=== PATIENT | female | born 1965 | race Caucasian/White ===

== ENCOUNTER 2017-03-26 01:35 | Observation (INO) | payer MEDICARE, MEDICAID ==
[2017-03-26] MEDS ORDERED: Sodium Chloride 0.9% 10 ML Syringe FLUSH PRN (01:43)
[2017-03-26] MEDS ORDERED: Dexamethasone 10 MG/ML SDV IVPUSH ONE (01:43)
[2017-03-26] MEDS ORDERED: Sodium Chloride 0.9% 1,000 ML IV ONE (01:44)
--- NOTE | 2017-03-26 01:50 | EDM.PDOC ---
ED HPI GENERAL MEDICAL PROBLEM - General Chief Complaint: Back Pain or Injury Stated Complaint: Back pain Time Seen by Provider: 03/26/17 01:42 Source of Information: Reports: Patient, EMS Notes Reviewed, RN, RN Notes Reviewed History Limitations: Reports: No Limitations - History of Present Illness INITIAL COMMENTS - FREE TEXT/NARRATIVE: Patient is brought to the ED at [facility] via EMS with complaints of acute on chronic low back pain. Patient states she was trying to transfer herself from the bed to her wheelchair to go to the bathroom, when the pain got worse. The pain is always present to some degree, but is worse now. Patient states her low back pain is chronic. She states she is schedule for a pain injection this Saturday at [facility]. Patient states the pain "got so bad I felt like passing out." Patient received 1mg of Dilaudid en route via EMS. 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 Right lower back Pain Score (Numeric/FACES): 8 - Related Data Allergies Allergy/AdvReac Type Severity Reaction Status Date / Time Penicillins Allergy Vomiting Verified 03/26/17 02:04 Home Meds: Home Meds Levothyroxine Sodium [Synthroid] 200 mcg PO DAILY 05/26/14 [History] Pantoprazole [ProTONIX] 1 tab PO BID 05/26/14 [History] Serum Eye Drops 1 drop EYEBOTH QID 05/26/14 [History] Tolterodine Tartrate [Detrol LA] 4 mg PO DAILY 05/26/14 [History] Topiramate [Topamax] 100 mg PO BID 05/26/14 [History] Dorzolamide HCl/Timolol Maleat [Cosopt Eye Drops] 1 drop EYEBOTH BID 06/30/15 [ History] Gabapentin [Neurontin] 300 mg PO TID 06/30/15 [History] Latanoprost [Xalatan 0.005% Ophth Soln] 1 drop EYEBOTH BEDTIME 06/15/16 [History ] Nortriptyline 25 mg PO BEDTIME 06/15/16 [History] Calcium Carbonate/Vitamin D3 [Calcium 500-Vit D3 200 Caplet] 1 each PO DAILY [History] glipiZIDE [Glucotrol] 10 mg PO DAILY 06/22/16 [History] Acetaminophen [Tylenol] 650 mg PO Q4H PRN #0 tablet 06/28/16 [Rx] Non-Formulary Medication [NF Drug] 1 each EYEBOTH 0800,1100,1400,1800 each 08/13 [Rx] predniSONE 20 mg PO DAILY #30 tablet 06/28/16 [Rx] Past Medical History HEENT History: Reports: Cataract, Glaucoma Gastrointestinal History: Reports: GERD Musculoskeletal History: Reports: Back Pain, Chronic Neurological History: Reports: Other (See Below) Other Neuro History: Mom reports [facility] told them pt has "headache less" migraines. Has had brain biopsy at [facility] Endocrine/Metabolic History: Reports: Hypothyroidism, Obesity/BMI 30+ Dermatologic History: Reports: None - Past Surgical History HEENT Surgical History: Reports: Cataract Surgery Social & Family History - Family History Family Medical History: Noncontributory - Tobacco Use Smoking Status *Q: Never Smoker Second Hand Smoke Exposure: Yes - Caffeine Use Caffeine Use: Reports: None - Alcohol Use Days Per Week of Alcohol Use: 0 Number of Drinks Per Day: 0 Total Drinks Per Week: 0 - Recreational Drug Use Recreational Drug Use: No Drug Use in Last 12 Months: No ED ROS GENERAL - Review of Systems Review Of Systems: See Below Constitutional: Denies: Fever, Chills, Weakness Respiratory: Denies: Shortness of Breath, Cough Cardiovascular: Denies: Chest Pain, Palpitations Musculoskeletal: Reports: Back Pain (acute on chronic) Skin: Reports: No Symptoms Neurological: Reports: No Symptoms. Denies: Headache, Numbness, Paresthesia, Tingling ED EXAM,LOWER BACK PAIN/INJURY - Physical Exam Exam: See Below Exam Limited By: No Limitations General Appearance: Alert, Mild Distress, Obese Respiratory/Chest: No Respiratory Distress, Lungs Clear, Normal Breath Sounds Cardiovascular: Regular Rate, Rhythm Back Exam: Normal Inspection, Decreased Range of Motion, Muscle Spasm, Paraspinal Tenderness Neurological: Alert, Oriented x 3 Skin Exam: Warm, Dry, Intact, Normal Color, No Rash Course - Vital Signs Last Recorded V/S: Last Vital Signs Temp 36.6 C 03/26/17 01:45 Pulse 97 03/26/17 01:45 Resp 16 03/26/17 01:45 BP 99/58 L 03/26/17 01:45 Pulse Ox 94 L 03/26/17 01:45 - Orders/Labs/Meds Orders: Active Orders 24 hr Category Date Time Status Admission Status [Patient Status] [ADT] Routine ADT 03/26/17 02:26 Ordered Sodium Chloride 0.9% [Normal Saline] 1,000 ml Med 03/26/17 01:44 Active IV ONETIME Sodium Chloride 0.9% [Saline Flush] Med 03/26/17 01:43 Active 10 ml FLUSH ASDIRECTED PRN Peripheral IV Insertion Adult [OM.PC] Routine Oth 03/26/17 01:43 Ordered Medication Orders Sodium Chloride (Normal Saline) 1,000 mls @ 999 mls/hr IV ONETIME ONE Stop: 03/26/17 02:44 Sodium Chloride (Saline Flush) 10 ml FLUSH ASDIRECTED PRN PRN Reason: Keep Vein Open Meds: Medications Generic Name Dose Route Start Last Admin Trade Name Freq PRN Reason Stop Dose Admin Sodium Chloride 1,000 mls @ 999 mls/hr 03/26/17 01:44 Normal Saline IV 03/26/17 02:44 ONETIME ONE Sodium Chloride 10 ml 03/26/17 01:43 Saline Flush FLUSH ASDIRECTED PRN Keep Vein Open Discontinued Medications Generic Name Dose Route Start Last Admin Trade Name Freq PRN Reason Stop Dose Admin Dexamethasone 12 mg 03/26/17 01:43 Dexamethasone IVPUSH 03/26/17 01:44 ONETIME ONE Dexamethasone 12 mg 03/26/17 02:15 Dexamethasone IVPUSH 03/26/17 02:16 ONETIME ONE Orphenadrine Citrate 60 mg 03/26/17 01:43 Norflex IM 03/26/17 01:44 ONETIME ONE Departure - Departure Time of Disposition: 02:24 Disposition: Refer to Observation Condition: Fair Clinical Impression: Acute exacerbation of chronic low back pain, Lethargy - Discharge Information Referrals: PCP,Unobtain [Primary Care Provider] - - Problem List Review Problem List Initiated/Reviewed/Updated: Yes - My Orders Last 24 Hours: My Active Orders 03/26/17 01:43 Sodium Chloride 0.9% [Saline Flush] 10 ml FLUSH ASDIRECTED PRN Peripheral IV Insertion Adult [OM.PC] Routine 03/26/17 01:44 Sodium Chloride 0.9% [Normal Saline] 1,000 ml IV ONETIME 03/26/17 02:26 Admission Status [Patient Status] [ADT] Routine - Assessment/Plan Admission H&P: Please use this note as an admission H&P Last 24 Hours: My Active Orders 03/26/17 01:43 Sodium Chloride 0.9% [Saline Flush] 10 ml FLUSH ASDIRECTED PRN Peripheral IV Insertion Adult [OM.PC] Routine 03/26/17 01:44 Sodium Chloride 0.9% [Normal Saline] 1,000 ml IV ONETIME 03/26/17 02:26 Admission Status [Patient Status] [ADT] Routine
[2017-03-26] MEDS ORDERED: Dexamethasone 4 MG/ML SDV IVPUSH ONE (02:15)
[2017-03-26] MEDS ORDERED: Ondansetron 4 MG Tab.DIS PO PRN (03:17)
[2017-03-26] MEDS ORDERED: Acetaminophen 325 MG Tab PO PRN (03:23)
[2017-03-26] MEDS: Omeprazole 20 MG Cap.CR PO SCH ×2 (06:02→16:48)
[2017-03-26] MEDS ORDERED: PANTOPRAZOLE PO SCH (08:00)
[2017-03-26] MEDS: Tolterodine 2 MG Cap.ER PO SCH (08:04)
[2017-03-26] MEDS: Topiramate 50 MG Tab PO SCH ×2 (08:04→19:51)
[2017-03-26] MEDS: Gabapentin 300 MG Cap PO SCH ×3 (08:04→21:46)
[2017-03-26] MEDS: DORZOLAMIDE EYEBOTH SCH ×2 (08:05→21:47)
[2017-03-26] MEDS: TIMOLOL EYEBOTH SCH ×2 (08:05→21:47)
[2017-03-26] MEDS: Acetaminophen/HYDROcodone 325-5 MG Tab PO PRN ×2 (16:48→21:13)
[2017-03-26] MEDS: SERUM EYE EYEBOTH SCH (18:12)
--- NOTE | 2017-03-26 18:16 | PCM.PN ---
- General Info Date of Service: 03/26/17 Subjective Update: Patient is brought to the ED at [facility] last night via EMS with complaints of acute on chronic low back pain. Patient states she was trying to transfer herself from the bed to her wheelchair to go to the bathroom, when the pain got worse. The pain is always present to some degree, but is worse now. Patient states her low back pain is chronic. She states she is schedule for a pain injection tomorrow at [facility]. Patient states the pain "got so bad I felt like passing out." Patient received 1mg of Dilaudid en route via EMS. Patient offers no new complaints today. She states her low right side back pain is still 5/10. No problems with urinating or BM's. No focal neurological deficits. No SOB or cough. Functional Status: Reports: Tolerating Diet, Urinating Pain Score: 5 - Review of Systems General: Reports: No Symptoms. Denies: Fever, Weakness Pulmonary: Reports: No Symptoms. Denies: Shortness of Breath, Cough Cardiovascular: Reports: No Symptoms. Denies: Chest Pain, Palpitations Musculoskeletal: Reports: Back Pain, Other (muscle spasm and stiffness with pain radiating down posterior right leg) Skin: Reports: No Symptoms Neurological: Reports: No Symptoms. Denies: Headache, Numbness, Paresthesia, Tingling - Patient Data Vitals - Most Recent: Last Vital Signs Temp 36.8 C 03/26/17 13:50 Pulse 95 03/26/17 13:50 Resp 20 03/26/17 13:50 BP 120/57 L 03/26/17 13:50 Pulse Ox 100 03/26/17 13:50 Weight - Most Recent: 103.873 kg I&O - Last 24 Hours: Intake & Output 03/26/17 03/26/17 03/26/17 06:59 14:59 22:59 Intake Total 800 240 Output Total 300 Balance 500 240 Lab Results Last 24 Hours: Laboratory Results - last 24 hr 03/26/17 03/26/17 03/26/17 Range/Units 06:00 11:06 16:46 POC Glucose 205 H 242 H 146 H (74-106) mg/dL Med Orders - Current: Current Medications Acetaminophen (Tylenol) 650 mg PO Q6H PRN PRN Reason: Pain Hydrocodone Bitart/Acetaminophen ([place] 325-5 Mg) 1 tab PO Q4H PRN PRN Reason: Pain (moderate 4-6) Last Admin: 03/26/17 16:48 Dose: 1 tab Dorzolamide/Timolol (Cosopt 2%-0.5% Ophth Soln) 0 ml EYEBOTH BID [facility] Last Admin: 03/26/17 08:05 Dose: Not Given Gabapentin (Neurontin) 300 mg PO TID [facility] Last Admin: 03/26/17 12:32 Dose: 300 mg Glipizide (Glucotrol) 10 mg PO DAILY [facility] Last Admin: 03/26/17 08:04 Dose: 10 mg Insulin Detemir (Levemir) 13 unit SUBCUT BEDTIME [facility] Latanoprost (Xalatan 0.005% Ophth Soln) 0 ml EYEBOTH BEDTIME [facility] Levothyroxine Sodium (Levothyroxine) 175 mcg PO DAILY@0700 [facility] Last Admin: 03/26/17 06:01 Dose: 175 mcg Nortriptyline HCl (Nortriptyline) 25 mg PO BEDTIME [facility] Omeprazole (Omeprazole) 20 mg PO BIDAC [facility] Last Admin: 03/26/17 16:48 Dose: 20 mg Ondansetron HCl (Zofran Odt) 4 mg PO Q6H PRN PRN Reason: nausea, able to take PO Senna (Senna) 8.6 mg PO BEDTIME [facility] Sodium Chloride (Saline Flush) 10 ml FLUSH ASDIRECTED PRN PRN Reason: Keep Vein Open Tolterodine Tartrate (Detrol La 24 Hr) 4 mg PO DAILY [facility] Last Admin: 03/26/17 08:04 Dose: 4 mg Topiramate (Topamax) 100 mg PO BID [facility] Last Admin: 03/26/17 08:04 Dose: 100 mg Discontinued Medications Dexamethasone (Dexamethasone) 12 mg IVPUSH ONETIME ONE Stop: 03/26/17 01:44 Last Admin: 03/26/17 04:27 Dose: Not Given Dexamethasone (Dexamethasone) 12 mg IVPUSH ONETIME ONE Stop: 03/26/17 02:16 Last Admin: 03/26/17 02:31 Dose: 12 mg Sodium Chloride (Normal Saline) 1,000 mls @ 999 mls/hr IV ONETIME ONE Stop: 03/26/17 02:44 Last Admin: 03/26/17 02:20 Dose: 999 mls/hr Orphenadrine Citrate (Norflex) 60 mg IM ONETIME ONE Stop: 03/26/17 01:44 Last Admin: 03/26/17 02:24 Dose: 60 mg Serum Eye Drops 1 (Drop *Ptom*) 0 each EYEBOTH QID [facility]LLIE - Exam General: Alert, Oriented, Cooperative, No Acute Distress Lungs: Clear to Auscultation, Normal Respiratory Effort Cardiovascular: Regular Rate, Regular Rhythm Back Exam: Normal Inspection, Muscle Spasm, Paraspinal Tenderness Extremities: Normal Inspection Peripheral Pulses: 2+: Posterior Tibial (L), Posterior Tibial (R), Dorsalis Pedis (L), Dorsalis Pedis (R) Skin: Warm, Dry, Intact Neurological: No New Focal Deficit - Problem List & Annotations (1) Acute exacerbation of chronic low back pain SNOMED Code(s): 471622750 Code(s): M54.5 - LOW BACK PAIN; G89.29 - OTHER CHRONIC PAIN Status: Acute Priority: Medium Current Visit: Yes Onset Date: ~03/25/17 (2) Lethargy SNOMED Code(s): 651386541 Code(s): R53.83 - OTHER FATIGUE Status: Resolved Priority: Medium Current Visit: Yes Onset Date: ~03/25/17 - Problem List Review Problem List Initiated/Reviewed/Updated: Yes - My Orders Last 24 Hours: My Active Orders 03/26/17 03:17 Patient Status [ADT] Routine Blood Glucose Check, Bedside [RC] ,,,15 December Shower [RC] .PRN Oxygen Therapy [RC] .PRN Up With Assistance [RC] VTE/DVT Education [RC] .PRN Vital Signs [RC] 06,10,14,18,22,02 Consult to Case Management [CONS] Routine OT Evaluation and Treatment [CONS] Routine PT Evaluation and Treatment [CONS] Routine Acetaminophen/HYDROcodone [[place] 325-5 MG] 1 tab PO Q4H PRN Ondansetron [Zofran ODT] 4 mg PO Q6H PRN Resuscitation Status Routine 03/26/17 03:19 Intake and Output [RC] 06,18 03/26/17 03:23 Acetaminophen [Tylenol] 650 mg PO Q6H PRN 03/26/17 07:00 Levothyroxine 175 mcg PO DAILY@0700 Omeprazole 20 mg PO BIDAC 03/26/17 08:00 Dorzolamide/Timolol [Cosopt 2%-0.5% Ophth Soln] 0 ml EYEBOTH BID Gabapentin [Neurontin] 300 mg PO TID Tolterodine [Detrol LA 24 Hr] 4 mg PO DAILY Topiramate [Topamax] 100 mg PO BID glipiZIDE [Glucotrol] 10 mg PO DAILY 03/26/17 20:00 Insulin Detemir [Levemir] 13 unit SUBCUT BEDTIME Latanoprost [Xalatan 0.005% Ophth Soln] 0 ml EYEBOTH BEDTIME Nortriptyline 25 mg PO BEDTIME Sennosides [Senna] 8.6 mg PO BEDTIME 03/26/17 Breakfast [place] [employer] Diet [DIET] - Assessment Assessment:: 1. Acute on chronic low back pain with sciatica, right 2. Lethargy, resolved - Plan Plan:: 51-year-old female patient with multiple medical problems was admitted to the observation unit at [facility] for acute on chronic right low back pain with right side sciatica and lethargy. Overall the patient states she feels she is stable. Her pain is stable and has somewhat gotten better. The pain has not gotten any worse. The patient will be seen by physical therapy today. The patient does have occupational therapy ordered, however they are not available to see her today. The patient will remain on observation for 1 more night to make sure that there is not any bowel or bladder issues. The patient will be discharged tomorrow morning at which time she will be sent to the surgery department for a spinal injection. It would be my recommendation at this time the patient would need permanent shelter placement due to increasing use of a wheelchair, poor ambulation, multiple medical problems, and need for assistance with her ADLs on a daily basis. I will leave this conversation to the patient and her primary care provider. I would recommend that the patient follow up with her PCP next week. The patient will have early ambulation for DVT prophylaxis. The patient is a Code 1.
[2017-03-26] MEDS ORDERED: Sennosides 8.6 MG Tab PO SCH (20:00)
[2017-03-26] MEDS ORDERED: INSULIN GLARGINE SUBCUT SCH (20:00)
[2017-03-26] MEDS ORDERED: Latanoprost 0.005% Ophth Soln 2.5 ML Bottle ** OWN MED EYEBOTH SCH (20:00)
[2017-03-26] MEDS ORDERED: [UNRECOGNIZED DRUG - OTHER] SUBCUT SCH (20:00)
[2017-03-26] MEDS ORDERED: Nortriptyline 25 MG Cap PO SCH (20:00)
[2017-03-26] MEDS ORDERED: Insulin Detemir 100 Units/ML 3 ML Pen SUBCUT SCH (20:00)
[2017-03-27] MEDS: Omeprazole 20 MG Cap.CR PO SCH (06:13)
[2017-03-27 06:43] VITALS: BP 130/60
--- NOTE | 2017-03-27 06:53 | PCM.DCSUM1 ---
Discharge Summary - Hospital Course HPI Initial Comments: Patient was brought to the ED at [facility] via EMS with complaints of acute on chronic low back pain. Patient states she was trying to transfer herself from the bed to her wheelchair to go to the bathroom, when the pain got worse. The pain is always present to some degree, but had gotten worse. Patient states her low back pain is chronic. She states she is schedule for a pain injection today, Saturday at [facility]. Patient states the pain "got so bad I felt like passing out." Patient received 1mg of Dilaudid en route via EMS. Brief History: Patient states her lower back pain is "better" today than when she was admitted. No problems with bowel or bladder. Patient has not had any chest pain or shortness of breath. Patient states she has been resting comfortably. - Discharge Data Discharge Date: 03/27/17 Discharge Disposition: Home, Self-Care 01 Condition: Good - Discharge Diagnosis/Problem(s) (1) Acute exacerbation of chronic low back pain SNOMED Code(s): 105528827 ICD Code: M54.5 - LOW BACK PAIN; G89.29 - OTHER CHRONIC PAIN Status: Acute Priority: Medium Current Visit: Yes Onset Date: ~03/25/17 (2) Lethargy SNOMED Code(s): 034150702 ICD Code: R53.83 - OTHER FATIGUE Status: Resolved Priority: Medium Current Visit: Yes Onset Date: ~03/25/17 - Patient Summary/Data Operative Procedure(s) Performed: None Consults: Consultations 03/26/17 03:17 Consult to Case Management [CONS] Routine OT Evaluation and Treatment [CONS] Routine PT Evaluation and Treatment [CONS] Routine Labs Pending at D/C: None Hospital Course: Overall, patient did well during her stay. Patient remained hemodynamically stable and afebrile. Patient was able to help ambulate to the bathroom when needed with minimal pain. No falls. No issues with bowel or bladder. - Patient Instructions Diet: Diabetic Diet Activity: Rest and Relax Today Driving: Do Not Drive Showering/Bathing: May Shower Notify Provider of: Fever, Increased Pain, Nausea and/or Vomiting - Discharge Plan Home Medications: Home Meds Levothyroxine Sodium [Synthroid] 175 mcg PO DAILY 05/26/14 [History] Serum Eye Drops 1 drop EYEBOTH QID 05/26/14 [History] Tolterodine Tartrate [Detrol LA] 4 mg PO DAILY 05/26/14 [History] Topiramate [Topamax] 100 mg PO BID 05/26/14 [History] Dorzolamide HCl/Timolol Maleat [Cosopt Eye Drops] 1 drop EYEBOTH BID 06/30/15 [ History] Gabapentin [Neurontin] 300 mg PO TID 06/30/15 [History] Latanoprost [Xalatan 0.005% Ophth Soln] 1 drop EYEBOTH BEDTIME 06/15/16 [History ] Nortriptyline 25 mg PO BEDTIME 06/15/16 [History] glipiZIDE [Glucotrol] 10 mg PO DAILY 06/22/16 [History] Acetaminophen [Tylenol] 650 mg PO Q6HR PRN MDD 4000 mg 03/26/17 [History] Calcium Citrate/Vitamin D3 [Calcium Citrate + D] 1 tab PO DAILY 03/26/17 [ History] Escitalopram [Lexapro] 10 mg PO DAILY 03/26/17 [History] Insulin Glarg,Human.Rec.Analog [LantUS Solostar] 13 units SUBCUT BEDTIME [History] Loperamide HCl [Imodium A-D] 1 tab PO QID PRN 03/26/17 [History] Sennosides [Senokot] 8.6 mg PO BEDTIME 03/26/17 [History] Omeprazole 20 mg PO BIDAC cap.cr 03/27/17 [Rx] Patient Handouts: Back Exercises, Back Pain, Adult Referrals: Radha Leon DO [Physician] - - Discharge Summary/Plan Comment DC Time >30 min.: No Discharge Summary/Plan Comment: Patient will be discharged home today. Patient is scheduled for a pain injection today at 10.:30 at [facility]. Recommend patient make an appointment with her Primary for a hospital follow up in one week. No change with any home medications. - General Info Date of Service: 03/27/17 Admission Dx/Problem (Free Text: 1. Acute on chronic low back pain 2. Fatigue Subjective Update: Patient is brought to the ED at [facility] last night via EMS with complaints of acute on chronic low back pain. Patient states she was trying to transfer herself from the bed to her wheelchair to go to the bathroom, when the pain got worse. The pain is always present to some degree, but is worse now. Patient states her low back pain is chronic. She states she is schedule for a pain injection tomorrow at [facility]. Patient states the pain "got so bad I felt like passing out." Patient received 1mg of Dilaudid en route via EMS. Patient offers no new complaints today. She states her low right side back pain is still 5/10. No problems with urinating or BM's. No focal neurological deficits. No SOB or cough. Functional Status: Reports: Pain Controlled, Tolerating Diet, Urinating Numeric/FACES Score: 3 - Review of Systems General: Reports: No Symptoms. Denies: Fever, Weakness Pulmonary: Denies: Shortness of Breath, Sputum Cardiovascular: Denies: Chest Pain, Palpitations Musculoskeletal: Reports: Back Pain (chronic) Skin: Reports: No Symptoms Neurological: Reports: No Symptoms. Denies: Headache, Numbness, Paresthesia, Tingling - Patient Data Vitals - Most Recent: Last Vital Signs Temp 36.1 C 03/27/17 06:00 Pulse 71 03/27/17 06:00 Resp 20 03/27/17 06:00 BP 130/60 03/27/17 06:00 Pulse Ox 95 03/27/17 02:00 Weight - Most Recent: 103.873 kg I&O - Last 24 hours: Intake & Output 03/26/17 03/26/17 03/27/17 14:59 22:59 06:59 Intake Total 240 Output Total 750 Balance 240 -750 Lab Results - Last 24 hrs: Laboratory Results - last 24 hr 03/26/17 03/26/17 03/26/17 Range/Units 11:06 16:46 19:58 POC Glucose 242 H 146 H 174 H (74-106) mg/dL 03/27/17 Range/Units 06:14 POC Glucose 128 H (74-106) mg/dL Med Orders - Current: Current Medications Acetaminophen (Tylenol) 650 mg PO Q6H PRN PRN Reason: Pain Hydrocodone Bitart/Acetaminophen ([place] 325-5 Mg) 1 tab PO Q4H PRN PRN Reason: Pain (moderate 4-6) Last Admin: 03/26/17 21:13 Dose: 1 tab Dorzolamide/Timolol (Cosopt 2%-0.5% Ophth Soln) 0 ml EYEBOTH BID [facility] Last Admin: 03/26/17 21:47 Dose: 1 drop Gabapentin (Neurontin) 300 mg PO TID [facility] Last Admin: 03/26/17 21:46 Dose: 300 mg Glipizide (Glucotrol) 10 mg PO DAILY [facility] Last Admin: 03/26/17 08:04 Dose: 10 mg Insulin Detemir (Levemir) 13 unit SUBCUT BEDTIME [facility] Last Admin: 03/26/17 19:51 Dose: 13 units Latanoprost (Xalatan 0.005% Ophth Soln) 0 ml EYEBOTH BEDTIME [facility] Last Admin: 03/26/17 21:47 Dose: 1 drop Levothyroxine Sodium (Levothyroxine) 175 mcg PO DAILY@0700 [facility] Last Admin: 03/27/17 06:13 Dose: 175 mcg Nortriptyline HCl (Nortriptyline) 25 mg PO BEDTIME [facility] Last Admin: 03/26/17 19:50 Dose: 25 mg Omeprazole (Omeprazole) 20 mg PO BIDAC [facility] Last Admin: 03/27/17 06:13 Dose: 20 mg Ondansetron HCl (Zofran Odt) 4 mg PO Q6H PRN PRN Reason: nausea, able to take PO Senna (Senna) 8.6 mg PO BEDTIME [facility] Last Admin: 03/26/17 19:59 Dose: 8.6 mg Sodium Chloride (Saline Flush) 10 ml FLUSH ASDIRECTED PRN PRN Reason: Keep Vein Open Tolterodine Tartrate (Detrol La 24 Hr) 4 mg PO DAILY [facility] Last Admin: 03/26/17 08:04 Dose: 4 mg Topiramate (Topamax) 100 mg PO BID [facility] Last Admin: 03/26/17 19:51 Dose: 100 mg Discontinued Medications Dexamethasone (Dexamethasone) 12 mg IVPUSH ONETIME ONE Stop: 03/26/17 01:44 Last Admin: 03/26/17 04:27 Dose: Not Given Dexamethasone (Dexamethasone) 12 mg IVPUSH ONETIME ONE Stop: 03/26/17 02:16 Last Admin: 03/26/17 02:31 Dose: 12 mg Sodium Chloride (Normal Saline) 1,000 mls @ 999 mls/hr IV ONETIME ONE Stop: 03/26/17 02:44 Last Admin: 03/26/17 02:20 Dose: 999 mls/hr Orphenadrine Citrate (Norflex) 60 mg IM ONETIME ONE Stop: 03/26/17 01:44 Last Admin: 03/26/17 02:24 Dose: 60 mg Serum Eye Drops 1 (Drop *Ptom*) 0 each EYEBOTH QID [facility] Last Admin: 03/26/17 18:12 Dose: Not Given - Exam General: Reports: Alert, Oriented, Cooperative, No Acute Distress Lungs: Reports: Clear to Auscultation, Normal Respiratory Effort Cardiovascular: Reports: Regular Rate, Regular Rhythm Back Exam: Reports: Normal Inspection, Muscle Spasm, Paraspinal Tenderness Skin: Reports: Warm, Dry, Intact Neurological: Reports: No New Focal Deficit *Q Meaningful Use (DIS) - VTE *Q VTE Criteria *Q: None - Stroke *Q Stroke Criteria *Q: - AMI *Q AMI Criteria *Q:
[2017-03-27] MEDS: DORZOLAMIDE EYEBOTH SCH (08:01)
[2017-03-27] MEDS: Tolterodine 2 MG Cap.ER PO SCH (08:01)
[2017-03-27] MEDS: Gabapentin 300 MG Cap PO SCH (08:01)
[2017-03-27] MEDS: TIMOLOL EYEBOTH SCH (08:01)
[2017-03-27] MEDS: Topiramate 50 MG Tab PO SCH (08:01)
[2017-03-27] MEDS: Acetaminophen/HYDROcodone 325-5 MG Tab PO PRN (08:03)
== END 2017-03-27 10:15 | disposition home or self-care (01) ==
LOC: VM.ED 01:35 → VM.MS 02:26
PROVIDERS: ADMIT Nurse Practitioner Family; ATTEND Nurse Practitioner Family
DX: G89.29 Other chronic pain (principal); M54.5 Low back pain; R53.83 Other fatigue; Z79.4 Long term (current) use of insulin; Z79.899 Other long term (current) drug therapy; Z88.0 Allergy status to penicillin
CPT/HCPCS: 82962; 96361; 96372; 96374; 97161; 97165; 97530; 99284; A9270; J1100; J1815; J2360; J7030; 99217; 99220; G0378

== ENCOUNTER 2017-03-28 09:22 | Observation (INO) | payer MEDICARE, MEDICAID ==
[2017-03-28] MEDS ORDERED: Ketorolac 30 MG/ML SDV IVPUSH ONE (09:28)
[2017-03-28 10:07] LABS: CHLORIDE,CL 108 mmol/L (98-107); SODIUM,NA 141 mmol/L (136-145)
[2017-03-28] MEDS ORDERED: Ibuprofen 200 MG Tab PO PRN (12:12)
[2017-03-28] MEDS: Sulfamethoxazole/Trimethoprim 800-160 MG Tab PO SCH ×2 (13:02→19:36)
[2017-03-28] MEDS: Topiramate 50 MG Tab PO SCH ×2 (14:26→19:49)
[2017-03-28] MEDS: Calcium Citrate/Vitamin D3 315 MG-250 Unit Tab PO SCH (14:26)
[2017-03-28] MEDS ORDERED: SERUM EYE EYEBOTH SCH (16:00)
[2017-03-28] MEDS: Omeprazole 20 MG Cap.CR PO SCH (16:22)
[2017-03-28] MEDS: Acetaminophen/HYDROcodone 325-10 MG Tab PO PRN ×2 (16:39→21:30)
[2017-03-28] MEDS: TIMOLOL EYEBOTH SCH (19:33)
[2017-03-28] MEDS: DORZOLAMIDE EYEBOTH SCH (19:33)
[2017-03-28] MEDS: Gabapentin 300 MG Cap PO SCH (19:37)
[2017-03-28] MEDS ORDERED: Sennosides 8.6 MG Tab PO SCH (20:00)
[2017-03-28] MEDS ORDERED: LATANOPROST 0.005% EYEBOTH SCH (20:00)
[2017-03-28] MEDS ORDERED: Nortriptyline 25 MG Cap PO SCH (20:00)
[2017-03-28] MEDS ORDERED: Insulin Detemir 100 Units/ML 3 ML Pen SUBCUT SCH (20:00)
[2017-03-28] MEDS ORDERED: Sodium Chloride 0.9% 10 ML Syringe IV PRN (21:37)
[2017-03-29] MEDS: Acetaminophen/HYDROcodone 325-10 MG Tab PO PRN ×2 (01:47→07:28)
[2017-03-29] MEDS: Omeprazole 20 MG Cap.CR PO SCH (06:25)
--- NOTE | 2017-03-29 07:05 | ER ---
Date of Service: 03/28/2017 SUBJECTIVE: Liz presents to the emergency room with complaints of low back pain. The patient has a history of L4-L5 disk herniation with central canal stenosis as well as chronic SI joint pain. The patient was admitted on observation status on 03/26/2017 by Moses Liu. She did have physical therapy at that time. The patient was subsequently discharged and later in the day had an L4-L5 facet joint steroid injections. The patient's sister states that she has been having back pain since approximately December. She has had an MRI which does reveal the above-noted pathology. The patient states that when she was discharged, she was feeling relatively well, but once the local anesthetic dissipated, she was experiencing severe discomfort in her low back. To note, she had not been prescribed any opiate pain medication to take after discharge or after the injection. The patient woke this morning and basically was unable to get out of bed on her own power. She subsequently called 911 who brought her to the emergency room. They did give her 1 mg of Dilaudid on scene due to her severe discomfort. PAST MEDICAL HISTORY: 1. Chronic low back pain. 2. SI joint arthropathy. 3. 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 4. Learning disability. 5. Hypothyroidism. 6. Gastroesophageal reflux disease. 7. Menometrorrhagia. 8. Glaucoma. 9. Hearing loss. 10.Overactive bladder. 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 12.Cataracts. 13.Obesity. 14.Migraine headaches. 15.Peripheral neuropathy. 16.Impaired fasting blood glucose. PAST SURGICAL HISTORY: 1. Status post thyroidectomy. 2. Cataract surgery x4. 3. Brain biopsy. FAMILY HISTORY: Mother had strokes in her 60s. Mom also has a history of hypertension and hyperlipidemia. ALLERGIES: Penicillin. MEDICATIONS: Please see MAR. REVIEW OF SYSTEMS: General: Denies any fever or chills. Respiratory: Denies any shortness of breath or cough. Cardiac: Denies any substernal chest pain. No jaw, arm, neck, or back pain. Gastrointestinal: No nausea, vomiting, or diarrhea. No melena, hematochezia, or hematemesis. Genitourinary: Denies any dysuria. Musculoskeletal: Please see history of present illness. Neurologic: Denies any fainting, blackouts, or lightheadedness. She denies any saddle anesthesia or urinary or fecal incontinence. PHYSICAL EXAMINATION: General: This is a 51-year-old female patient, who is in mild amount of distress. Vital Signs: Blood pressure is 131/97, heart rate is 84, temperature is 36.8, respiratory rate 16, and O2 saturations 100%. Skin: Warm, pink, and dry. HEENT: Head is normocephalic, atraumatic. Eyes, PERRLA. Extraocular movements are intact. Mouth, oral mucosa is moist. Lungs: Clear to auscultation. Heart: Regular rate and rhythm. Abdomen: Soft, nontender. There is no hepatosplenomegaly or masses noted. Extremities: Without edema. Back: She does have some spasm to the lumbosacral area of her low back. She does have Band-Aids in place from her lumbar facet joint injections yesterday. No obvious cellulitis noted. The area is not warm to the touch. She has a great amount of difficulty with sitting up and requires the help of others to help her get in to sitting position from lying down. Psychiatric: The patient is anxious and tearful, but her insight is otherwise normal. Remainder of her physical examination is within normal limits. LABORATORY DATA: WBC is 11.3, hemoglobin is 8.5, and platelets are 411. Chemistry; sodium is 141, potassium is 4.1, chloride is 108, bicarb is 24, BUN is 18, creatinine is 1.2. GFR is 47, glucose is 137, calcium is 8.3, corrected calcium is 9.1. Total bilirubin is 0.2, AST is 14, ALT is 22, alkaline phosphatase 98. C-reactive protein is 2.9, total protein is 7.5, albumin is 3.0. Urinalysis reveals a pH of 7.0, specific gravity of 1.020. Negative for protein, glucose, ketones. She did have a trace of occult blood, negative nitrites and bilirubin. She did have moderate leukocyte esterase. EMERGENCY ROOM COURSE: Again, the patient was given 1 mg of Dilaudid IV. She was also given Toradol 30 mg IV as well. She reported that her pain was much better, but she was still only able to ambulate approximately 10 feet. Decision was made to admit the patient on observation status and have her followed by physical and occupational therapy and re-evaluate tomorrow. ASSESSMENT: 1. Acute on chronic low back pain. 2. Urinary tract infection. PLAN: We will start her on Bactrim DS 1 twice daily for her UTI. Also, we will start her on [place] 10/325 with instructions to take 1 every 4 to 6 hours as needed for pain. She will also take 600 mg of ibuprofen every 6 hours. We will have her followed by PT and OT. The patient is a code level 1. We will have her in [facility] for DVT prophylaxis. All questions were answered. MWK: 03/28/2017 12:50:55 MODL: 03/28/2017 17:08:15 /[id number]
[2017-03-29] MEDS: Calcium Citrate/Vitamin D3 315 MG-250 Unit Tab PO SCH (07:28)
[2017-03-29] MEDS: Topiramate 50 MG Tab PO SCH (07:28)
[2017-03-29] MEDS: Sulfamethoxazole/Trimethoprim 800-160 MG Tab PO SCH (07:28)
[2017-03-29] MEDS: Gabapentin 300 MG Cap PO SCH ×2 (07:28→12:27)
[2017-03-29] MEDS: DORZOLAMIDE EYEBOTH SCH (07:29)
[2017-03-29] MEDS: TIMOLOL EYEBOTH SCH (07:29)
[2017-03-29] MEDS ORDERED: Citalopram 20 MG Tab PO SCH (08:00)
[2017-03-29] MEDS ORDERED: Tolterodine 2 MG Cap.ER PO SCH (08:00)
[2017-03-29 10:04] VITALS: BP 128/72
--- NOTE | 2017-03-29 12:38 | PCM.DCSUM1 ---
Discharge Summary - Hospital Course Brief History: Patient admitted to the hospital in observation status due to back pain and urinary tract infection. UTI treated with Bactrim, back pain treatment with PT/OT, ambulation, pain medications. Social Service consult to determine whether she is safe to go home. - Discharge Data Discharge Date: 03/29/17 Discharge Disposition: Home, Self-Care 01 Condition: Good - Discharge Diagnosis/Problem(s) (1) Degenerative disc disease, lumbar SNOMED Code(s): 06775841 ICD Code: M51.36 - OTHER INTERVERTEBRAL DISC DEGENERATION, LUMBAR REGION Status: Chronic Priority: Low Current Visit: No (2) Facet arthritis, degenerative, lumbar spine SNOMED Code(s): 069046240 ICD Code: M47.896 - OTHER SPONDYLOSIS, LUMBAR REGION Status: Chronic Priority: Low Current Visit: No Problem Details: L3-4, L4-5, L5-S1 bilat (3) Lumbar spinal stenosis SNOMED Code(s): 98018072 ICD Code: M48.06 - SPINAL STENOSIS, LUMBAR REGION Status: Chronic Priority: Low Current Visit: No - Patient Summary/Data Consults: Consultations 03/28/17 11:44 OT Evaluation and Treatment [CONS] Routine 03/28/17 19:02 Consult to [employer] [CONS] Routine Recommended Follow-up Testing/Procedures: Follow up with Dr. Leon next week. You should try to use your muscle relaxer first for pain management. Take ibuprofen as well. If this does not work, then take your pain medications. You can also try a warm/hot bath, analgesic cream like icy/hot, aspercreme, warm heating pad, alternate with ice. Moving as much is possible is what you need to do. Sitting or lying in bed will make your back more painful. Finish taking the Bactrim antibiotic to reduce your chance of reinfection and antibiotic resistance. Please call with any questions or concerns. Hospital Course: Patient admitted yesterday for treatment of urinary tract infection as well as intractable back pain. Was seen for pain injection by Deon Rojas CRNA earlier this week. She does have long history of lumbar spinal stenosis. While here was treated with Septra DS for UTI, PT/OT saw for back exercises, evaluation and treatment. Given e-stim yesterday. Patient's pain has been managed and she has been up and ambulating. She is ready for discharge today. - Patient Instructions Diet: Usual Diet as Tolerated Activity: As Tolerated Showering/Bathing: May Shower - Discharge Plan Prescriptions/Med Rec: Acetaminophen/HYDROcodone [[place] 325-10 MG] 1 tab PO Q4H PRN #20 tablet PRN Reason: Pain Sulfamethoxazole/Trimethoprim [IJD: Sulfamethoxazole/Trimethoprim DS] 1 tab PO BID #3 tablet Home Medications: Home Meds Levothyroxine Sodium [Synthroid] 175 mcg PO DAILY 05/26/14 [History] Serum Eye Drops 1 drop EYEBOTH QID 05/26/14 [History] Tolterodine Tartrate [Detrol LA] 4 mg PO DAILY 05/26/14 [History] Topiramate [Topamax] 100 mg PO BID 05/26/14 [History] Dorzolamide HCl/Timolol Maleat [Cosopt Eye Drops] 1 drop EYEBOTH BID 06/30/15 [ History] Gabapentin [Neurontin] 300 mg PO TID 06/30/15 [History] Latanoprost [Xalatan 0.005% Ophth Soln] 1 drop EYEBOTH BEDTIME 06/15/16 [History ] Nortriptyline 25 mg PO BEDTIME 06/15/16 [History] glipiZIDE [Glucotrol] 10 mg PO DAILY 06/22/16 [History] Acetaminophen [Tylenol] 650 mg PO Q6HR PRN MDD 4000 mg 03/26/17 [History] Calcium Citrate/Vitamin D3 [Calcium Citrate + D] 1 tab PO DAILY 03/26/17 [ History] Escitalopram [Lexapro] 10 mg PO DAILY 03/26/17 [History] Insulin Glarg,Human.Rec.Analog [LantUS Solostar] 13 units SUBCUT BEDTIME [History] Loperamide HCl [Imodium A-D] 1 tab PO QID PRN 03/26/17 [History] Sennosides [Senokot] 8.6 mg PO BEDTIME 03/26/17 [History] Omeprazole 20 mg PO BIDAC cap.cr 03/27/17 [Rx] Acetaminophen/HYDROcodone [[place] 325-10 MG] 1 tab PO Q4H PRN #20 tablet [Rx] Ibuprofen [Motrin] 600 mg PO Q6H PRN tablet 03/29/17 [Rx] Sulfamethoxazole/Trimethoprim [IJD: Sulfamethoxazole/Trimethoprim DS] 1 tab PO BID #3 tablet 03/29/17 [Rx] Forms: ED Department Discharge Referrals: PCP,None [Primary Care Provider] - - Discharge Summary/Plan Comment DC Time >30 min.: Yes - General Info Functional Status: Reports: Pain Controlled, Tolerating Diet, Ambulating - Review of Systems General: Reports: No Symptoms HEENT: Reports: No Symptoms Pulmonary: Reports: No Symptoms Cardiovascular: Reports: No Symptoms Gastrointestinal: Reports: No Symptoms Genitourinary: Reports: No Symptoms Musculoskeletal: Reports: Back Pain (better) Skin: Reports: No Symptoms Neurological: Reports: No Symptoms Psychiatric: Reports: No Symptoms - Patient Data Vitals - Most Recent: Last Vital Signs Temp 37.1 C 03/29/17 10:00 Pulse 79 03/29/17 10:00 Resp 16 03/29/17 10:00 BP 128/72 03/29/17 10:00 Pulse Ox 99 03/29/17 10:00 Weight - Most Recent: 102.965 kg I&O - Last 24 hours: Intake & Output 03/28/17 03/29/17 03/29/17 22:59 06:59 14:59 Intake Total 350 240 Output Total 200 650 Balance 150 -650 240 Lab Results - Last 24 hrs: Laboratory Results - last 24 hr 03/29/17 03/29/17 Range/Units 06:58 06:58 WBC 12.5 H (4.0-10.0) x10^3/uL RBC 4.53 (4.00-5.50) x10^6/uL Hgb 8.5 L (12.0-16.0) g/dL Hct 29.9 L (33.0-47.0) % MCV 66.0 L (78.0-93.0) fL MCH 18.8 L (26.0-32.0) pg MCHC 28.4 L (32.0-36.0) g/dL RDW Coeff of Sebastian 22.7 H (10.0-15.0) % Plt Count 422 H (130-400) x10^3/uL Neut % (Auto) 68.7 (50.0-80.0) % Lymph % (Auto) 20.5 L (25.0-50.0) % [place] % (Auto) 8.6 (2.0-11.0) % Eos % (Auto) 1.8 (0.0-4.0) % Baso % (Auto) 0.4 (0.2-1.2) % C-Reactive Protein 2.5 H (<=0.9) mg/dL Med Orders - Current: Current Medications Hydrocodone Bitart/Acetaminophen ([place] 325-10 Mg) 1 tab PO Q4H PRN PRN Reason: Pain Last Admin: 03/29/17 07:28 Dose: 1 tab Calcium Citrate (Calcium Citrate + D) 1 tab PO DAILY OLLIE Last Admin: 03/29/17 07:28 Dose: 1 tab Citalopram Hydrobromide (Celexa) 20 mg PO DAILY [facility] Last Admin: 03/29/17 07:28 Dose: 20 mg Dorzolamide/Timolol (Cosopt 2%-0.5% Ophth Soln) 0 ml EYEBOTH BID [facility] Last Admin: 03/29/17 07:29 Dose: 1 drop Gabapentin (Neurontin) 300 mg PO TID [facility] Last Admin: 03/29/17 12:27 Dose: 300 mg Glipizide (Glucotrol) 10 mg PO ACBREAKFAST [facility] Last Admin: 03/29/17 06:25 Dose: 10 mg Ibuprofen (Motrin) 600 mg PO Q6H PRN PRN Reason: Pain/Fever Insulin Detemir (Levemir) 13 unit SUBCUT BEDTIME [facility] Last Admin: 03/28/17 20:41 Dose: 13 units Latanoprost (Xalatan 0.005% Ophth Soln) 0 ml EYEBOTH BEDTIME [facility] Last Admin: 03/28/17 19:34 Dose: 1 drop Levothyroxine Sodium (Levothyroxine) 175 mcg PO ACBREAKFAST [facility] Last Admin: 03/29/17 06:26 Dose: 175 mcg Nortriptyline HCl (Nortriptyline) 25 mg PO BEDTIME OLLIE Last Admin: 03/28/17 19:35 Dose: 25 mg Omeprazole (Omeprazole) 20 mg PO BIDAC [facility] Last Admin: 03/29/17 06:25 Dose: 20 mg Senna (Senna) 8.6 mg PO BEDTIME [facility] Last Admin: 03/28/17 19:37 Dose: 8.6 mg Sodium Chloride (Saline Flush) 10 ml IV ASDIRECTED PRN PRN Reason: Keep Vein Open Last Admin: 03/29/17 01:50 Dose: 10 ml Tolterodine Tartrate (Detrol La 24 Hr) 4 mg PO DAILY [facility] Last Admin: 03/29/17 07:28 Dose: 4 mg Topiramate (Topamax) 100 mg PO BID [facility] Last Admin: 03/29/17 07:28 Dose: 100 mg Trimethoprim/Sulfamethoxazole (Septra Ds) 1 tab PO BID [facility] Last Admin: 03/29/17 07:28 Dose: 1 tab Discontinued Medications Ketorolac Tromethamine (Toradol) 30 mg IVPUSH ONETIME ONE Stop: 03/28/17 09:29 Last Admin: 03/28/17 09:35 Dose: 30 mg Non-Formulary Medication (Serum Eye Drops) 1 drop EYEBOTH QID [facility] Last Admin: 03/28/17 16:51 Dose: Not Given - Exam General: Reports: Alert, Oriented, Cooperative, No Acute Distress HEENT: Reports: Pupils Equal, Pupils Reactive, EOMI Neck: Reports: Supple Lungs: Reports: Clear to Auscultation, Normal Respiratory Effort Cardiovascular: Reports: Regular Rate, Regular Rhythm GI/Abdominal Exam: Normal Bowel Sounds, Soft, Non-Tender, No Organomegaly, No Distention Back Exam: Reports: Normal Inspection Extremities: Normal Inspection, Normal Range of Motion, Non-Tender, No Pedal Edema, Normal Capillary Refill Skin: Reports: Warm, Dry, Intact Neurological: Reports: No New Focal Deficit Psy/Mental Status: Reports: Alert, Normal Affect, Normal Mood *Q Meaningful Use (DIS) - VTE *Q VTE Criteria *Q: - Stroke *Q Stroke Criteria *Q: - AMI *Q AMI Criteria *Q:
--- NOTE | 2017-04-02 07:58 | ER ---
Date of Service: 03/28/2017 ADDENDUM: Please note this patient's emergency room note may be used as her admission H and P. MWK: 03/31/2017 17:19:58 MODL: 03/31/2017 22:38:40 /[id number]
== END 2017-03-29 13:15 | disposition home or self-care (01) ==
LOC: VM.ED 09:22 → VM.MS 11:02
PROVIDERS: ADMIT Physician Assistant; ATTEND Physician Assistant
DX: M51.36 Other intervertebral disc degeneration, lumbar region (principal); M47.896 Other spondylosis, lumbar region; M48.06 Spinal stenosis, lumbar region; K21.9 Gastro-esophageal reflux disease without esophagitis; E66.9 Obesity, unspecified; E03.9 Hypothyroidism, unspecified; Z88.0 Allergy status to penicillin; Z90.89 Acquired absence of other organs; Z98.890 Other specified postprocedural states; Z79.4 Long term (current) use of insulin; Z79.899 Other long term (current) drug therapy
CPT/HCPCS: 36415; 80053; 81001; 82962; 85025; 86140; 96374; 97116; 97168; 99284; A9270; G0283; G0378; J1885; J7050; 99217; 99220

== ENCOUNTER 2017-10-12 15:40 | Emergency (ER) | payer MEDICARE, MEDICAID ==
[2017-10-12] MEDS ORDERED: Sodium Chloride 0.9% 10 ML Syringe FLUSH PRN (16:00)
[2017-10-12] MEDS ORDERED: Lactated Ringers 1,000 ML IV ONE (16:01)
[2017-10-12] MEDS ORDERED: Ondansetron 4 MG/2 ML SDV IVPUSH ONE (16:01)
--- NOTE | 2017-10-12 16:13 | EDM.PDOC ---
ED HPI GENERAL MEDICAL PROBLEM - General Chief Complaint: Headache Stated Complaint: Headache/Dizziness/Vomiting Time Seen by Provider: 10/12/17 15:57 Source of Information: Reports: Patient, EMS Notes Reviewed, RN, RN Notes Reviewed History Limitations: Reports: No Limitations - History of Present Illness INITIAL COMMENTS - FREE TEXT/NARRATIVE: Patient presents to the ED at [facility] via EMS with headache, severe nausea, and vomiting. Patient states her symptoms started after she ate a large bowl of sugared cereal. Patient states her nausea started first so she went to lay down. After a few minutes, the nausea progressively got worse so she got up from laying down and thats when the vomiting started. Patient states she has some generalized abdominal pain. No focal neurological deficits. Patient denies any chest pain or SOB. No diarrhea. No recent change with any medications. No falls. No head injury or trauma. She feels very lightheaded. Patient received one dose of 4mg Zofran per medics, with minimal relief. No cough. Patient states she usually takes Advil but has not had any today. Onset: Today, Sudden Onset Date: 10/12/17 Onset Time: 14:30 Forehead Pain Score (Numeric/FACES): 8 - Related Data Allergies Allergy/AdvReac Type Severity Reaction Status Date / Time Influenza Virus Vaccines Allergy Paralysis Verified 10/12/17 15:59 Penicillins AdvReac Vomiting Verified 10/12/17 15:59 Home Meds: Home Meds Levothyroxine Sodium [Synthroid] 175 mcg PO DAILY 05/26/14 [History] Serum Eye Drops 1 drop EYEBOTH QID 05/26/14 [History] Tolterodine Tartrate [Detrol LA] 4 mg PO DAILY 05/26/14 [History] Topiramate [Topamax] 100 mg PO BID 05/26/14 [History] Dorzolamide HCl/Timolol Maleat [Cosopt Eye Drops] 1 drop EYEBOTH BID 06/30/15 [ History] Gabapentin [Neurontin] 600 mg PO TID 06/30/15 [History] Latanoprost [Xalatan 0.005% Ophth Soln] 1 drop EYEBOTH BEDTIME 06/15/16 [History ] Nortriptyline 25 mg PO BEDTIME 06/15/16 [History] glipiZIDE [Glucotrol] 10 mg PO DAILY 06/22/16 [History] Acetaminophen [Tylenol] 650 mg PO Q6HR PRN MDD 4000 mg 03/26/17 [History] Calcium Citrate/Vitamin D3 [Calcium Citrate + D] 1 tab PO DAILY 03/26/17 [ History] Escitalopram [Lexapro] 10 mg PO DAILY 03/26/17 [History] Insulin Glarg,Human.Rec.Analog [LantUS Solostar] 13 units SUBCUT BEDTIME [History] Loperamide HCl [Imodium A-D] 1 tab PO QID PRN 03/26/17 [History] Sennosides [Senokot] 8.6 mg PO BEDTIME 03/26/17 [History] Omeprazole 20 mg PO BIDAC cap.cr 03/27/17 [Rx] Acetaminophen/HYDROcodone [[place] 325-10 MG] 1 tab PO Q4H PRN #20 tablet [Rx] Ibuprofen [Motrin] 600 mg PO Q6H PRN tablet 03/29/17 [Rx] Sulfamethoxazole/Trimethoprim [IJD: Sulfamethoxazole/Trimethoprim DS] 1 tab PO BID #3 tablet 03/29/17 [Rx] Past Medical History HEENT History: Reports: Cataract, Glaucoma Gastrointestinal History: Reports: GERD Musculoskeletal History: Reports: Back Pain, Chronic Neurological History: Reports: Other (See Below) Other Neuro History: Mom reports [facility] told them pt has "headache less" migraines. Has had brain biopsy at [facility] Endocrine/Metabolic History: Reports: Hypothyroidism, Obesity/BMI 30+ Dermatologic History: Reports: None - Past Surgical History HEENT Surgical History: Reports: Cataract Surgery Cardiovascular Surgical History: Reports: None Female Surgical History: Reports: Hysterectomy Social & Family History - Family History Family Medical History: Noncontributory - Tobacco Use Smoking Status *Q: Never Smoker Used Tobacco, but Quit: No Second Hand Smoke Exposure: Yes - Caffeine Use Caffeine Use: Reports: None - Alcohol Use Days Per Week of Alcohol Use: 0 Number of Drinks Per Day: 0 Total Drinks Per Week: 0 - Recreational Drug Use Recreational Drug Use: No Drug Use in Last 12 Months: No ED ROS GENERAL - Review of Systems Review Of Systems: See Below Constitutional: Reports: Weakness. Denies: Fever, Chills Respiratory: Denies: Shortness of Breath, Cough Cardiovascular: Denies: Chest Pain, Palpitations GI/Abdominal: Reports: Abdominal Pain, Nausea, Vomiting. Denies: Constipation, Diarrhea Skin: Reports: No Symptoms Neurological: Reports: Dizziness, Headache. Denies: Numbness, Paresthesia, Tingling - Physical Exam Exam: See Below Exam Limited By: No Limitations General Appearance: Alert, No Apparent Distress, Obese Respiratory/Chest: No Respiratory Distress, Lungs Clear, Normal Breath Sounds Cardiovascular: Normal Peripheral Pulses, Regular Rate, Rhythm GI/Abdominal: Soft, Tender (generalized), Abnormal Bowel Sounds (Hyperactive) Neuro Exam (Abbreviated): Alert, Oriented Skin Exam: Warm, Dry, Intact, Normal Color Course - Vital Signs Last Recorded V/S: Last Vital Signs Temp 35.9 C 10/12/17 15:40 Pulse 90 10/12/17 15:40 Resp 12 10/12/17 15:40 BP 147/83 H 10/12/17 15:40 Pulse Ox 95 10/12/17 15:40 - Orders/Labs/Meds Orders: Active Orders 24 hr Category Date Time Status Ibuprofen [Motrin] Med 10/12/17 17:13 Stop Req 800 mg PO Q6H ONE Sodium Chloride 0.9% [Saline Flush] Med 10/12/17 16:00 Active 10 ml FLUSH ASDIRECTED PRN Peripheral IV Insertion Adult [OM.PC] Routine Oth 10/12/17 16:00 Ordered Medication Orders Sodium Chloride (Saline Flush) 10 ml FLUSH ASDIRECTED PRN PRN Reason: Keep Vein Open Labs: Laboratory Tests 10/12/17 10/12/17 Range/Units 16:38 16:38 WBC 11.0 H (4.0-10.0) x10^3/uL RBC 5.14 (4.00-5.50) x10^6/uL Hgb 9.9 L (12.0-16.0) g/dL Hct 34.6 (33.0-47.0) % MCV 67.3 L (78.0-93.0) fL MCH 19.3 L (26.0-32.0) pg MCHC 28.6 L (32.0-36.0) g/dL RDW Coeff of [place] 21.8 H (10.0-15.0) % Plt Count 364 (130-400) x10^3/uL Neut % (Auto) 71.9 (50.0-80.0) % Lymph % (Auto) 17.7 L (25.0-50.0) % [place] % (Auto) 7.4 (2.0-11.0) % Eos % (Auto) 2.6 (0.0-4.0) % Baso % (Auto) 0.4 (0.2-1.2) % Sodium 141 (136-145) mmol/L Potassium 3.9 (3.5-5.1) mmol/L Chloride 107 (98-107) mmol/L Carbon Dioxide 25 (21-32) mmol/L BUN 16 (7-18) mg/dL Creatinine 1.3 H (0.55-1.02) mg/dL Est Cr Clr Drug Dosing TNP Estimated GFR (MDRD) 43 Glucose 119 H (74-106) mg/dL Calcium 8.4 L (8.5-10.1) mg/dL Magnesium 2.0 (1.8-2.4) mg/dL Meds: Medications Generic Name Dose Route Start Last Admin Trade Name Freq PRN Reason Stop Dose Admin Sodium Chloride 10 ml 10/12/17 16:00 Saline Flush FLUSH ASDIRECTED PRN Keep Vein Open Discontinued Medications Generic Name Dose Route Start Last Admin Trade Name Freq PRN Reason Stop Dose Admin Lactated Ringer's 1,000 mls @ 999 mls/hr 10/12/17 16:01 10/12/17 16:20 Ringers, Lactated IV 10/12/17 17:01 999 mls/hr ONETIME ONE Administration Ibuprofen 800 mg 10/12/17 17:13 Motrin PO 10/12/17 17:14 Q6H ONE Ketorolac Tromethamine 30 mg 10/12/17 17:14 Toradol IVPUSH 10/12/17 17:15 ONETIME ONE Ondansetron HCl 4 mg 10/12/17 16:01 10/12/17 16:20 Zofran IVPUSH 10/12/17 16:02 4 mg ONETIME ONE Administration Departure - Departure Time of Disposition: 17:19 Disposition: Home, Self-Care 01 Condition: Good Clinical Impression: Headache Qualifiers: Headache type: unspecified Headache chronicity pattern: chronic headache Intractability: not intractable Qualified Code(s): R51 - Headache Nausea & vomiting Qualifiers: Vomiting type: unspecified Vomiting Intractability: non-intractable Qualified Code(s): R11.2 - Nausea with vomiting, unspecified - Discharge Information Instructions: General Headache Without Cause, [id number], Nausea and Vomiting , Adult, [id number] Referrals: Radha Leon DO [Primary Care Provider] - Forms: ED Department Discharge Additional Instructions: 1. Stay well hydrated and rest 2. Take nausea medication as needed 3. Avoid sugary foods, they will make your symptoms worse 4. See Dr. Leon as symptoms warrant 5. Call with any questions or concerns, we care about your health!! - Problem List Review Problem List Initiated/Reviewed/Updated: Yes - My Orders Last 24 Hours: My Active Orders 10/12/17 16:00 Sodium Chloride 0.9% [Saline Flush] 10 ml FLUSH ASDIRECTED PRN Peripheral IV Insertion Adult [OM.PC] Routine 10/12/17 17:13 Ibuprofen [Motrin] 800 mg PO Q6H ONE - Assessment/Plan Last 24 Hours: My Active Orders 10/12/17 16:00 Sodium Chloride 0.9% [Saline Flush] 10 ml FLUSH ASDIRECTED PRN Peripheral IV Insertion Adult [OM.PC] Routine 10/12/17 17:13 Ibuprofen [Motrin] 800 mg PO Q6H ONE Assessment:: Headache, chronic Nausea and Vomiting Plan: Labs OK. Patient will be sent home. Give script for Zofran. Avoid sugary foods. Let stomach rest. Patient will be discharged home. F/U with PCP as symptoms warrant.
[2017-10-12 16:58] LABS: CHLORIDE,CL 107 mmol/L (98-107); SODIUM,NA 141 mmol/L (136-145)
[2017-10-12 16:59] VITALS: BP 147/83
[2017-10-12] MEDS ORDERED: Ibuprofen 200 MG Tab PO ONE (17:13)
[2017-10-12] MEDS ORDERED: Ketorolac 30 MG/ML SDV IVPUSH ONE (17:14)
[2017-10-12] MEDS ORDERED: Take Home: Ondansetron 4 MG Tab.DIS, 2 Tab Pack PO ONE (17:25)
== END 2017-10-12 17:45 | disposition home or self-care (01) ==
LOC: VM.ED 15:40 → SUPCPDRO 15:40 → VM.ED 17:45
DX: R51 Headache (principal); R11.2 Nausea with vomiting, unspecified; Z77.22 Contact with and (suspected) exposure to environmental tobacco smoke (acute) (chronic); K21.9 Gastro-esophageal reflux disease without esophagitis; E03.9 Hypothyroidism, unspecified; Z79.899 Other long term (current) drug therapy; Z79.4 Long term (current) use of insulin; Z88.7 Allergy status to serum and vaccine; Z88.0 Allergy status to penicillin
CPT/HCPCS: 36415; 80048; 83735; 85025; 96365; 96375; 99284; A9270; J1885; J2405; J7120

== ENCOUNTER 2021-05-19 01:24 | Inpatient (IN) | payer MEDICARE, MEDICAID ==
--- NOTE | 2021-05-19 01:49 | EDM.PDOC ---
ED HPI GENERAL MEDICAL PROBLEM - General Chief Complaint: General Stated Complaint: weakness Time Seen by Provider: 05/19/21 01:30 Source of Information: Reports: Patient History Limitations: Reports: No Limitations - History of Present Illness INITIAL COMMENTS - FREE TEXT/NARRATIVE: Patient states she tested positive for Covid Saturday as outpatient she has been doing okay overall but having increased weakness in her extremities to the point she is not able to use her walker and has been using her wheelchair and today she had a tough time getting up to go to the restroom and tonight she felt that her legs were so weak that they would give out from under her getting up to go to the toilet. She says she has been running intermittent fever with chills over the last day or 2 with a cough. She also states she has had decreased fluid intake and decreased eating She has no other complaints at this time Duration: Day(s): Severity: Moderate Associated Symptoms: Reports: Cough, Fever/Chills, Weakness. Denies: Nausea/Vomiting, Shortness of Breath Headache Pain Score (Numeric/FACES): 4 - Related Data Allergies Allergy/AdvReac Type Severity Reaction Status Date / Time Influenza Virus Vaccines Allergy Paralysis Verified 05/19/21 03:03 Penicillins AdvReac Vomiting Verified 05/19/21 03:03 Home Meds: Home Meds Dorzolamide HCl/Timolol Maleat [Cosopt Eye Drops] 1 drop EYEBOTH BID 06/30/15 [History] Gabapentin [Neurontin] 600 mg PO TID 06/30/15 [History] Latanoprost [Xalatan 0.005% Ophth Soln] 1 drop EYEBOTH BEDTIME 06/15/16 [History] Acetaminophen [Tylenol] 650 mg PO Q6HR PRN MDD 4000 mg 03/26/17 [History] Loperamide HCl [Imodium A-D] 1 tab PO QID PRN 03/26/17 [History] Sennosides [Senokot] 8.6 mg PO BEDTIME 03/26/17 [History] Calcium Carbonate/Vitamin D3 [Calcium 600 mg-D3 10 Mcg Sfgl] 1 each PO DAILY 05/19/21 [History] Cyanocobalamin (Vitamin B-12) [B-12] 5,000 mcg SL DAILY 05/19/21 [History] DULoxetine [Cymbalta] 30 mg PO BID 05/19/21 [History] Levothyroxine [Synthroid] 100 mcg PO ACBREAKFAST 05/19/21 [History] Oxybutynin 5 mg PO DAILY 05/19/21 [History] Pantoprazole Sodium [Protonix] 40 mg PO BID 05/19/21 [History] Simvastatin [Zocor] 20 mg PO BEDTIME 05/19/21 [History] Topiramate 75 mg PO BID 05/19/21 [History] Past Medical History HEENT History: Reports: Cataract, Glaucoma Gastrointestinal History: Reports: GERD Musculoskeletal History: Reports: Back Pain, Chronic Neurological History: Reports: Other (See Below) Other Neuro History: Mom reports [facility] told them pt has "headache less" migraines. Has had brain biopsy at [facility] Endocrine/Metabolic History: Reports: Hypothyroidism, Obesity/BMI 30+ Dermatologic History: Reports: None - Past Surgical History HEENT Surgical History: Reports: Cataract Surgery Cardiovascular Surgical History: Reports: None Female Surgical History: Reports: Hysterectomy Social & Family History - Family History Family Medical History: No Pertinent Family History - Caffeine Use Caffeine Use: Reports: None ED ROS GENERAL - Review of Systems Review Of Systems: See Below Constitutional: Reports: Fever, Chills HEENT: Reports: No Symptoms Respiratory: Reports: Cough Cardiovascular: Reports: No Symptoms Endocrine: Reports: Fatigue GI/Abdominal: Reports: No Symptoms : Reports: No Symptoms Musculoskeletal: Reports: No Symptoms Skin: Reports: No Symptoms Neurological: Reports: Difficulty Walking, Weakness Psychiatric: Reports: No Symptoms Hematologic/Lymphatic: Reports: No Symptoms ED EXAM, NEURO - Physical Exam Exam: See Below Exam Limited By: No Limitations General Appearance: Alert, WD/WN, No Apparent Distress Eye Exam: Bilateral Eye: EOMI, Normal Inspection, PERRL Ears: Normal External Exam, Normal Canal, Hearing Grossly Normal, Normal TMs Nose: Normal Inspection, Normal Mucosa, No Blood Throat/Mouth: Normal Inspection, Normal Lips, Normal Teeth, Normal Gums, Normal Oropharynx, Normal Voice, No Airway Compromise, Other (Dry mucous membranes) Head Exam: Atraumatic, Normocephalic Neck: Normal Inspection, Supple, Non-Tender, Full Range of Motion Respiratory/Chest: No Respiratory Distress, Lungs Clear, Normal Breath Sounds, No Accessory Muscle Use, Chest Non-Tender Cardiovascular: Normal Peripheral Pulses, Regular Rate, Rhythm, No Edema, No Gallop, No JVD, No Murmur, No Rub GI/Abdominal: Normal Bowel Sounds, Soft, Non-Tender, No Organomegaly, No Distention. No: Guarding, Rigid, Rebound, Tender Neurological: Alert, Normal Mood/Affect, CN II-XII Intact, No Motor/Sensory De ficits, Oriented x 3, Other (Strength graded 4 out of 5 bilateral lower extremity 5 of 5 upper extremity bilateral) Extremities: Normal Inspection, Normal Range of Motion, Non-Tender, No Pedal Edema, Normal Capillary Refill Psychiatric: Normal Affect, Normal Mood Skin Exam: Warm, Intact, Normal Color, No Rash *Q Meaningful Use (ADM) - VTE *Q VTE Mechanical Contraindications *Q: At Risk for Falls - VTE Risk Assess *Q Each Risk Factor Represents 1 Point: Age 41 - 59 years Total Score 1 Point Risk Factors: 1 Each Risk Factor Represents 2 Points: None Total Score 2 Point Risk Factors: 0 Course - Vital Signs Text/Narrative:: WBC within normal limits BUN and creatinine normal lactic acid normal Chest x-ray reveals questionable infiltrate in the right lower lobe believed to be secondary to Covid viral versus bacterial secondary to white blood cell count is normal but secondary to fever mild tachycardia she will receive Levaquin 750 p.o. She will be admitted for hydration, weakness, Covid spoke with [facility] he will accept the patient and see her in the morning Last Recorded V/S: Last Vital Signs Temp 38.4 C H 05/19/21 01:30 Pulse 97 05/19/21 01:30 Resp 24 H 05/19/21 01:30 BP 102/59 L 05/19/21 01:30 Pulse Ox 90 L 05/19/21 01:30 - Orders/Labs/Meds Orders: Active Orders 24 hr Category Date Time Status Chest 1V Frontal [CR] Stat Exams 05/19/21 01:41 Taken CULTURE BLOOD [BC] Stat Lab 05/19/21 01:35 Received CULTURE BLOOD [BC] Stat Lab 05/19/21 02:20 Received UA W/MICROSCOPIC [URIN] Stat Lab 05/19/21 01:41 Ordered Sodium Chloride 0.9% [Normal Saline] 500 ml Med 05/19/21 03:15 Active IV ONETIME Blood Culture x2 Reflex Set [OM.PC] Stat Oth 10/22/21 01:54 Ordered Medication Orders Sodium Chloride (Normal Saline) 500 mls @ 500 mls/hr IV ONETIME ONE Stop: 05/19/21 04:14 Labs: Laboratory Tests 05/19/21 05/19/21 05/19/21 Range/Units 01:35 01:35 01:35 WBC 9.1 (4.0-10.0) x10^3/uL RBC 5.59 H (4.00-5.50) x10^6/uL Hgb 16.0 (12.0-16.0) g/dL Hct 46.6 (33.0-47.0) % MCV 83.4 (78.0-93.0) fL MCH 28.6 (26.0-32.0) pg MCHC 34.3 (32.0-36.0) g/dL RDW Coeff of Sebastian 14.1 (10.0-15.0) % Plt Count 164 (130-400) x10^3/uL Immature Gran % (Auto) 0.70 H (0.00-0.43) % Neut % (Auto) 83.6 H (50.0-80.0) % Lymph % (Auto) 9.7 L (25.0-50.0) % Refugio % (Auto) 5.8 (2.0-11.0) % Eos % (Auto) 0.1 (0.0-4.0) % Baso % (Auto) 0.1 L (0.2-1.2) % Neut # (Auto) 7.6 (1.8-7.7) x10^3/uL Lymph # (Auto) 0.9 L (1.0-4.8) x10^3/uL Refugio # (Auto) 0.5 (0.0-0.8) x10^3/uL Eos # (Auto) 0.0 (0.0-0.5) x10^3/uL Baso # (Auto) 0.0 (0.0-0.2) x10^3/uL Immature Gran # (Auto) 0.06 (0.00-0.07) x10^3/uL Sodium 141 (136-145) mmol/L Potassium 4.0 (3.5-5.1) mmol/L Chloride 105 (98-107) mmol/L Carbon Dioxide 22 (21-32) mmol/L Anion Gap 18.0 H (5-15) mmol/L BUN 15 (7-18) mg/dL Creatinine 1.6 H (0.55-1.02) mg/dL Est Cr Clr Drug Dosing 29.98 mL/min Estimated GFR (MDRD) 33 Glucose 109 H (70-99) mg/dL Lactic Acid 0.8 (0.4-2.0) mmol/L Calcium 7.9 L (8.5-10.1) mg/dL Meds: Medications Generic Name Dose Route Start Last Admin Trade Name Freq PRN Reason Stop Dose Admin Sodium Chloride 500 mls @ 500 mls/hr 05/19/21 03:15 Normal Saline IV 05/19/21 04:14 ONETIME ONE Departure - Departure Time of Disposition: 03:00 Disposition: Admitted As Inpatient 66 Condition: Fair Clinical Impression: Weakness, Dehydration, COVID, Cough - Discharge Information *PRESCRIPTION DRUG MONITORING PROGRAM REVIEWED*: No *COPY OF PRESCRIPTION DRUG MONITORING REPORT IN PATIENT JO: No Forms: ED Department Discharge Sepsis Event Note (ED) - Focused Exam Vital Signs: Vital Signs Temp Pulse Resp BP Pulse Ox 05/19/21 01:30 38.4 C H 97 24 H 102/59 L 90 L - Problem List & Annotations (1) COVID SNOMED Code(s): 490365567 Code(s): U07.1 - COVID-19 Status: Acute (2) Cough SNOMED Code(s): 78425383 Code(s): R05.9 - COUGH, UNSPECIFIED Status: Acute (3) Dehydration SNOMED Code(s): 37678015 Code(s): E86.0 - DEHYDRATION Status: Acute (4) Weakness SNOMED Code(s): 09169735 Code(s): R53.1 - WEAKNESS Status: Acute - My Orders Last 24 Hours: My Active Orders 05/19/21 01:35 CULTURE BLOOD [BC] Stat 05/19/21 01:41 Chest 1V Frontal [CR] Stat UA W/MICROSCOPIC [URIN] Stat 05/19/21 01:54 Blood Culture x2 Reflex Set [OM.PC] Stat 05/19/21 02:20 CULTURE BLOOD [BC] Stat 05/19/21 03:15 Sodium Chloride 0.9% [Normal Saline] 500 ml IV ONETIME - Assessment/Plan Last 24 Hours: My Active Orders 05/19/21 01:35 CULTURE BLOOD [BC] Stat 05/19/21 01:41 Chest 1V Frontal [CR] Stat UA W/MICROSCOPIC [URIN] Stat 05/19/21 01:54 Blood Culture x2 Reflex Set [OM.PC] Stat 05/19/21 02:20 CULTURE BLOOD [BC] Stat 05/19/21 03:15 Sodium Chloride 0.9% [Normal Saline] 500 ml IV ONETIME
[2021-05-19] MEDS ORDERED: Sodium Chloride 0.9% 500 ML IV ONE (03:15)
[2021-05-19] MEDS ORDERED: Levofloxacin 250 MG Tab PO ONE (03:20)
[2021-05-19] MEDS ORDERED: Aspirin 325 MG Tab.EC PO ONE (03:25)
[2021-05-19] MEDS ORDERED: Sodium Chloride 0.9% 1,000 ML IV SCH (03:30)
[2021-05-19] MEDS ORDERED: Sennosides 8.6 MG Tab PO PRN (07:42)
[2021-05-19 08:47] LABS: ANION GAP 19.8 mmol/L (5-15)
[2021-05-19] MEDS: Calcium Carbonate/Vitamin D3 1250 MG-5 MCG Tab PO SCH (09:11)
[2021-05-19] MEDS: Acetaminophen 325 MG Tab PO PRN ×2 (09:11→22:53)
[2021-05-19] MEDS ORDERED: Loperamide 2 MG Cap PO PRN (09:16)
[2021-05-19] MEDS: Gabapentin 300 MG Cap PO SCH ×3 (10:38→20:17)
[2021-05-19] MEDS: Levothyroxine 100 MCG Tab PO SCH (10:39)
[2021-05-19] MEDS: Cyanocobalamin (Vitamin B12) 1,000 MCG Tab PO SCH (10:40)
[2021-05-19] MEDS: Pantoprazole 40 MG Tab.CR PO SCH ×2 (10:41→20:18)
[2021-05-19] MEDS: Topiramate 50 MG Tab PO SCH ×2 (10:41→20:18)
[2021-05-19] MEDS: Oxybutynin 5 MG Tab PO SCH (10:41)
[2021-05-19] MEDS: Dorzolamide/Timolol 2%-0.5% Ophth Soln 10 ML Bottle EYEBOTH SCH ×2 (10:42→20:16)
[2021-05-19] MEDS: Latanoprost 0.005% Ophth Soln 2.5 ML Bottle EYEBOTH SCH ×2 (10:51→20:15)
[2021-05-19] MEDS: DULoxetine 30 MG Cap PO SCH ×2 (10:56→20:17)
[2021-05-19] MEDS ORDERED: REMDESIVIR 200 MG in Sodium Chloride 0.9% 250 ML IV ONE (11:00)
--- NOTE | 2021-05-19 16:47 | CR ---
[id number] RAD/RAD Chest PA or AP 1V EXAM: RAD Chest PA or AP 1V INDICATION: FEVER, POSITIVE COVID COMPARISON: None. DISCUSSION: Cardiomediastinal silhouette is normal in size and contour. Patchy pulmonary infiltrates overlying the lungs bilaterally. No pneumothorax or pleural effusion. IMPRESSION: Patchy pulmonary infiltrates overlying the lungs bilaterally. Findings are likely infectious/inflammatory in nature as can be seen with atypical/viral pneumonia. This includes COVID pneumonia. Ryland Figueredo DO 05/19/21 0036 Thank you for allowing us to participate in the care of your patient.
[2021-05-19] MEDS: Simvastatin 20 MG Tab PO SCH (20:17)
[2021-05-19] MEDS: Sodium Chloride 0.9% 10 ML Syringe FLUSH SCH (20:22)
[2021-05-19] MEDS: Melatonin 3 MG Tab PO PRN (20:33)
--- NOTE | 2021-05-19 22:32 | HP ---
An admission history and physical to the acute care floor at [facility]. CHIEF COMPLAINT: Weakness. HISTORY OF PRESENT ILLNESS: A 55-year-old female patient presented to the emergency room at [facility] early this morning for worsening weakness, fevers, chills, and decreased intake. The patient states that she tested positive for COVID last Saturday as an outpatient. She had been doing okay overall, but over the past 2 to 3 days, she has had increased weakness, fevers, chills, and generally not feeling well. The patient was having difficulty getting herself in and out of the bathroom. The patient was having difficulty toileting and dressing. The patient states this morning she still feels very weak. The patient is hard of hearing. The patient denies any headaches. No dizziness or lightheadedness. The patient denies any skin concerns. No chest pain or palpitations. No leg swelling. She feels short of breath. The patient has a dry nonproductive cough. No abdominal pain. The patient states she is intermittently nauseated. No vomiting or diarrhea. The patient states she really does not have much of an appetite. She does not feel like drinking anything. PAST MEDICAL HISTORY: 1. Diabetes type 2, controlled, with peripheral vascular disorder. 2. Major depressive disorder. 3. 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 4. Left hemiparesis. 5. Dyslipidemia associated with type 2 diabetes. 6. Hypothyroidism. 7. Migraine. 8. Congenital rubella syndrome. 9. Aphakia. 10.Glaucoma. 11.Congenital sensorineural hearing loss. 12.GERD. 13.Vestibular migraine. 14.Peripheral neuropathy. 15.Lumbosacral spinal stenosis. 16.History of Jarquin's esophagus. 17.History of staphylococcal septicemia. 18.History of encephalitis. PAST SURGICAL HISTORY: 1. Hysterectomy. 2. Colonoscopy. 3. History of lumbar puncture. 4. History of dialysis catheter placement. 5. Craniotomy. 6. Cataract surgery. 7. Thyroidectomy. 8. Upper gastrointestinal endoscopy. FAMILY HISTORY: Noncontributory. SOCIAL HISTORY: The patient does not drink alcohol. The patient is not sexually active. The patient does not use any illegal drugs. The patient is a nonsmoker. The patient is currently disabled given her past medical history. LABORATORY STUDIES: 1. CBC: White blood cell count 9.1, hemoglobin 16.0, hematocrit 46.6. 2. BMP: Sodium 141, potassium 4.0, chloride 105, CO2 22, anion gap 18.0, BUN 15, creatinine 1.6, GFR 33, glucose 109, calcium 7.9. 3. Lactic acid 0.8. IMAGING STUDIES: Chest x-ray, which shows COVID pneumonia. MEDICATIONS: 1. Acetaminophen 650 mg p.o. every 6 hours as needed. 2. Calcium carbonate/vitamin D 1 tablet p.o. daily. 3. Vitamin B12 5000 mcg p.o. daily. 4. Cosopt 2% 1 drop to both eyes twice daily. 5. Cymbalta 30 mg p.o. twice daily. 6. Gabapentin 600 mg p.o. 3 times daily. 7. Latanoprost 1 drop to both eyes at bedtime. 8. Synthroid 100 mcg 1 tablet p.o. daily. 9. Imodium 2 mg p.o. 4 times daily as needed. 10.Oxybutynin 5 mg 1 tablet p.o. daily. 11.Protonix 40 mg 1 tablet p.o. twice daily. 12.Sennosides 8.6 mg 1 tablet p.o. daily at bedtime as needed. 13.Simvastatin 20 mg 1 tablet p.o. daily at bedtime. 14.Topiramate 75 mg 1 tablet p.o. twice daily. REVIEW OF SYSTEMS: See HPI. PHYSICAL EXAMINATION: Vital Signs: Temperature 101.2, pulse 97, blood pressure 102/59, respiratory rate 24, oxygen saturation 90% on 2 L. Height 5 feet 1 inch, weight 185 pounds. Skin: Intact, warm, and dry. Respiratory: The patient is slightly tachypneic, bibasilar crackles, otherwise decreased throughout. Cardiovascular: Regular rate and rhythm, no murmur. Abdomen: Soft, nontender. Bowel sounds are hypoactive x4. Extremities: No edema. Neurological: The patient is alert. The patient is very hard of hearing. No new focal neurological deficits. The patient is cooperative. ASSESSMENT: 1. Sepsis secondary to COVID-19 as evidenced by elevated temperature, low blood pressure, elevated respiratory rate. 2. Acute respiratory failure with hypoxia secondary to COVID-19. 3. Acute renal failure with elevated creatinine. 4. Clinical dehydration. 5. Diabetes type 2, controlled, not on insulin. 6. Major depressive disorder. 7. Left hemiparesis. 8. Dyslipidemia associated with type 2 diabetes mellitus. 9. Acquired hypothyroidism. 10.Gastroesophageal reflux disease. PLAN: A 55-year-old female patient is admitted to the acute care floor at [facility] for the above diagnoses. The patient will be started on a bolus of remdesivir, followed by daily remdesivir infusions. The patient will be started on Decadron 6 mg p.o. daily. Gentle IV fluid hydration even though contraindicated in COVID-19, the patient needs to be rehydrated. We will start Lovenox for DVT prophylaxis. The patient is a full code. The patient does wish to transfer to a higher level of care should the need arise. We will restart home medications as appropriate. Recheck laboratory work tomorrow morning. We discussed cough and deep breathing and how to use the incentive spirometer. Diabetic diet. PT, OT evaluations. Case Management for discharge planning. This patient was seen and examined by me as an [facility] provider. TB: 05/19/2021 19:28:13 MODL: 05/19/2021 22:28:19 /[id number]
[2021-05-20] MEDS: Levothyroxine 100 MCG Tab PO SCH (06:38)
[2021-05-20 07:40] LABS: ANION GAP 17.7 mmol/L (5-15)
[2021-05-20] MEDS: Oxybutynin 5 MG Tab PO SCH (08:06)
[2021-05-20] MEDS: Topiramate 50 MG Tab PO SCH ×2 (08:07→20:04)
[2021-05-20] MEDS: Gabapentin 300 MG Cap PO SCH ×3 (08:07→20:03)
[2021-05-20] MEDS: DULoxetine 30 MG Cap PO SCH ×2 (08:07→20:03)
[2021-05-20] MEDS: Pantoprazole 40 MG Tab.CR PO SCH ×2 (08:08→20:03)
[2021-05-20] MEDS: Dorzolamide/Timolol 2%-0.5% Ophth Soln 10 ML Bottle EYEBOTH SCH ×2 (08:09→20:07)
[2021-05-20] MEDS: Sodium Chloride 0.9% 10 ML Syringe FLUSH SCH ×2 (08:09→20:05)
[2021-05-20] MEDS: Calcium Carbonate/Vitamin D3 1250 MG-5 MCG Tab PO SCH (08:10)
[2021-05-20] MEDS: Cyanocobalamin (Vitamin B12) 1,000 MCG Tab PO SCH (08:10)
[2021-05-20] MEDS: REMDESIVIR 100 MG in Sodium Chloride 0.9% 100 ML IV SCH (10:13)
--- NOTE | 2021-05-20 10:13 | PN ---
Progress Note for [facility] Date: 05/20/2021 Room #: [facility] CHIEF COMPLAINT: Weakness. HISTORY OF PRESENT ILLNESS: Hospital day #2 for a 55-year-old female patient who was admitted to the acute care floor yesterday for worsening weakness, fevers, chills, decreased fluid intake, and COVID-19. The patient states this morning she continues to feel very weak. She does not have much energy. She states her appetite is poor. Patient has been trying to stay well hydrated with good p.o. fluid intake. The patient continues on oxygen for hypoxia. The patient denies any headaches, dizziness, or lightheadedness. Patient has a dry nonproductive cough. She feels short of breath, especially with ambulation. No chest pain or palpitations. No leg swelling. No abdominal complaints. No nausea, vomiting, or diarrhea. No skin complaints. PHYSICAL EXAMINATION: Vital Signs: Temperature 98.7, pulse 87, blood pressure 102/57, respiratory rate 24, oxygen saturation 93% on 2 L. Skin: Intact, warm and dry. Respiratory: Lungs are very decreased throughout, otherwise clear. Cardiovascular: Regular rate and rhythm, no murmur. Abdomen: Soft, nontender. Bowel sounds are hypoactive x4. Extremities: No edema. Neurological: The patient is alert. No focal neurological deficits. Patient is cooperative. LABORATORY STUDIES: 1. CBC: White blood cell count 8.9, hemoglobin 13.7, hematocrit 41.4, platelets are 155,000. 2. CMP: Sodium 142, potassium 3.7, chloride 107, CO2 of 21, anion gap 17.7, BUN 13, creatinine 1.3. GFR 43. Calcium 7.5. AST 50, ALT 35, alkaline phosphatase 98, total protein 6.7. ASSESSMENT: 1. Sepsis secondary to COVID-19 as evidenced by elevated temperature, low blood pressure, elevated respiratory rate. 2. Acute respiratory failure with hypoxia secondary to COVID-19. 3. Acute renal failure with elevated creatinine. 4. Clinical dehydration. 5. Diabetes type 2, controlled, not on insulin. 6. Major depressive disorder. 7. Left hemiparesis. 8. Dyslipidemia associated with type 2 diabetes. 9. Acquired hypothyroidism. 10.Gastroesophageal reflux disease. PLAN: Hospital day #2 on a 55-year-old female patient who was admitted to [facility] acute care floor for the above diagnoses. Continue to gently hydrate with IV fluids. We will stop the patient's calcium and vitamin B12 per her request. Continue on remdesivir and Decadron. No other changes with medications. Encourage patient to get up and ambulate. Continue oxygen for hypoxia. Patient is on Lovenox for DVT prophylaxis. Continue acute cares for now. We will recheck laboratory work tomorrow morning. This patient was seen and examined by me as an [facility] provider. TB: 05/20/2021 09:43:19 MODL: 05/20/2021 10:08:59 /[id number]
[2021-05-20] MEDS: Simvastatin 20 MG Tab PO SCH (20:03)
[2021-05-20] MEDS: Melatonin 3 MG Tab PO PRN (20:04)
[2021-05-20] MEDS: Acetaminophen 325 MG Tab PO PRN (20:06)
[2021-05-20] MEDS: Latanoprost 0.005% Ophth Soln 2.5 ML Bottle EYEBOTH SCH (20:07)
[2021-05-21] MEDS: Levothyroxine 100 MCG Tab PO SCH (06:02)
[2021-05-21] MEDS: Dorzolamide/Timolol 2%-0.5% Ophth Soln 10 ML Bottle EYEBOTH SCH ×2 (07:39→20:02)
[2021-05-21] MEDS: Gabapentin 300 MG Cap PO SCH ×3 (07:40→20:03)
[2021-05-21] MEDS: Topiramate 50 MG Tab PO SCH ×2 (07:41→20:02)
[2021-05-21] MEDS: DULoxetine 30 MG Cap PO SCH ×2 (07:42→20:03)
[2021-05-21] MEDS: Oxybutynin 5 MG Tab PO SCH (07:42)
[2021-05-21] MEDS: Pantoprazole 40 MG Tab.CR PO SCH ×2 (07:42→20:03)
[2021-05-21] MEDS: Sodium Chloride 0.9% 10 ML Syringe FLUSH SCH ×2 (07:43→20:03)
[2021-05-21 08:42] LABS: ANION GAP 16.5 mmol/L (5-15)
[2021-05-21] MEDS ORDERED: Ondansetron 4 MG/2 ML SDV IVPUSH PRN (09:01)
[2021-05-21] MEDS: dexAMETHasone 2 MG, dexAMETHasone 4 MG PO SCH ×2 (10:37)
[2021-05-21] MEDS: REMDESIVIR 100 MG in Sodium Chloride 0.9% 100 ML IV SCH (10:44)
[2021-05-21] MEDS: Enoxaparin 40 MG/0.4 ML Syringe SUBCUT SCH (10:47)
--- NOTE | 2021-05-21 11:21 | PN ---
Progress Note for [facility] Date: 05/21/2021 Room #: [facility] CHIEF COMPLAINT: Weakness. HISTORY OF PRESENT ILLNESS: Hospital day #3 for a 55-year-old female patient, who was admitted to the acute care floor at [place] for worsening weakness, fevers, chills, decreased fluid intake, and COVID-19. The patient states she feels very nauseated this morning. She has not had any vomiting or diarrhea. She has a little abdominal discomfort. Continues to feel very weak. The patient continues to have muscle aches and pains. The patient continues on oxygen to keep her saturations greater than 90%. The patient states she does not have much of an appetite. She has not slept well. The patient denies any headaches, dizziness, or lightheadedness. The patient feels short of breath with movement. The patient has a dry cough. No chest pain. No palpitations or leg swelling. Patient states she feels feverish. No chills. PHYSICAL EXAMINATION: Vital Signs: Temperature 99.2, pulse 89, blood pressure 125/64, respiratory rate 20, oxygen saturation 92% on 2 L. Skin: Intact, warm, and dry. Respiratory: Lungs are very decreased throughout, otherwise clear. Cardiovascular: Regular rate and rhythm, no murmur. Abdomen: Soft, nontender. Bowel sounds are hypoactive x4. Extremities: No edema. Neurological: Patient is alert. Patient is oriented to person, place, and time. No focal neurological deficits. LABORATORY STUDIES: 1. CBC: White blood cell count 8.1, hemoglobin 14.3, hematocrit 42.8, platelets 214,000. 2. CMP: Sodium 140, potassium 3.5, chloride 106, CO2 21, anion gap 16.5, BUN 16, creatinine 1.1, GFR 52, calcium 7.9, AST 37, ALT 32, alkaline phosphatase 103, total protein 7.1. ASSESSMENT: 1. Sepsis secondary to COVID-19 as evidenced by elevated temperature, low blood pressure, and elevated respiratory rate. 2. Acute respiratory failure with hypoxia secondary to COVID-19. 3. Acute renal failure with elevated creatinine. 4. Clinical dehydration. 5. Diabetes type 2, controlled, not on insulin. 6. Major depressive disorder. 7. Left hemiparesis. 8. Dyslipidemia associated with type 2 diabetes. 9. Acquired hypothyroidism. 10.Gastroesophageal reflux disease. PLAN: Hospital day #3 on a 55-year-old female patient, who was admitted to [place] acute care floor for the above diagnoses. Will continue on remdesivir. Continue on Decadron. Continue on Lovenox. Encourage patient for p.o. fluid. Patient does need to get up and move around. We will start the patient on Zofran for nausea. Continue on oxygen to keep her saturations greater than 90%. The patient will continue on acute cares for now. We will recheck laboratory work tomorrow morning. This patient was seen and examined by me as an [facility] provider. TB: 05/21/2021 10:33:29 MODL: 05/21/2021 11:12:53 /[id number]
--- NOTE | 2021-05-21 11:41 | CR ---
[id number] RAD/RAD Chest PA or AP 1V EXAM: RAD Chest PA or AP 1V INDICATION: SHORTNESS OF BREATH, HYPOXIA. COMPARISON: None. DISCUSSION: Cardiomediastinal silhouette is normal in size and contour. Patchy pulmonary infiltrates overlying the lungs bilaterally. No pneumothorax or pleural effusion. IMPRESSION: Patchy pulmonary infiltrates overlying the lungs bilaterally. Findings are likely infectious/inflammatory in nature as can be seen with atypical/viral pneumonia. This includes COVID pneumonia. Ryland Figueredo DO 05/21/21 1140 Thank you for allowing us to participate in the care of your patient.
[2021-05-21] MEDS: Latanoprost 0.005% Ophth Soln 2.5 ML Bottle EYEBOTH SCH (20:02)
[2021-05-21] MEDS: Simvastatin 20 MG Tab PO SCH (20:03)
[2021-05-22] MEDS: Levothyroxine 100 MCG Tab PO SCH (06:11)
[2021-05-22 07:56] LABS: ANION GAP 17.6 mmol/L (5-15)
--- NOTE | 2021-05-22 08:35 | PN ---
Progress Note for [facility] Date: 05/22/2021 Room #: [facility] CHIEF COMPLAINT: Weakness. HISTORY OF PRESENT ILLNESS: Hospital day #4 on a 55-year-old female patient, who was admitted to the acute care floor at [facility] for acute respiratory failure with hypoxia secondary to COVID-19, weakness, fevers, chills, decreased fluid intake. The patient states that her nausea is better today after medication. Her appetite has been fair. She continues to have shortness of breath with activity. Dry nonproductive cough. Intermittent chills. No fevers. The patient denies any headache, dizziness, or lightheadedness. No abdominal concerns. No vomiting or diarrhea. The patient denies any chest pain or palpitations. No leg swelling. PHYSICAL EXAMINATION: Vital Signs: Temperature 98.6, pulse 84, blood pressure 119/68, respiratory rate 20, oxygen 92% on 3 L. Skin: Intact, warm and dry. Respiratory: Lungs are very decreased throughout, otherwise clear. Cardiovascular: Regular rate and rhythm, no murmur. Abdomen: Soft and nontender. Bowel sounds are normoactive x4. Extremities: No edema. Neurological: The patient is alert and oriented x3. No new focal neurological deficits. LABORATORY STUDIES: 1. CBC: White blood cell count 6.1, hemoglobin 13.9, hematocrit 41.2, platelets 268,000. 2. CMP: Sodium 141, potassium 3.6, chloride 107, CO2 20, anion gap 17.6, BUN 19, creatinine 1.1. GFR 52, glucose 82, calcium 8.1, AST 39, ALT 35, alkaline phosphatase 9.3, total protein 6.8. 3. Lactic acid 0.9. 4. Phosphorus 3.9, magnesium 2.4. 5. Ferritin 696. 6. LDH 332. 7. C-reactive protein 38.1. ASSESSMENT: 1. Sepsis secondary to COVID-19 as evidenced by elevated temperature, low blood pressure, and elevated respiratory rate. 2. Acute respiratory failure with hypoxia secondary to COVID-19. 3. Acute renal failure with elevated creatinine. 4. Clinical dehydration. 5. Diabetes type 2, controlled, not on insulin. 6. Major depressive disorder. 7. Left hemiparesis. 8. Dyslipidemia associated with type 2 diabetes. 9. Acquired hypothyroidism. 10.Gastroesophageal reflux disease. PLAN: Hospital day #4 on a 55-year-old female patient, who was admitted for the above diagnoses. Continue remdesivir and Decadron. Continue with Lovenox. Encourage the patient for p.o. fluids. The patient needs to get up and move around in the room. Continue with Zofran for nausea. The patient to remain on acute cares due to oxygen, shortness of breath with activity. The patient is a candidate for the home monitoring, which we will check into today. The patient is a code 1. Recheck laboratory work tomorrow. This patient was seen and examined by me as an [facility] provider. TB: 05/22/2021 08:03:11 MODL: 05/22/2021 08:30:53 /[id number]
[2021-05-22] MEDS: Enoxaparin 40 MG/0.4 ML Syringe SUBCUT SCH (09:17)
[2021-05-22] MEDS: Topiramate 50 MG Tab PO SCH ×2 (09:17→20:01)
[2021-05-22] MEDS: DULoxetine 30 MG Cap PO SCH ×2 (09:19→20:01)
[2021-05-22] MEDS: dexAMETHasone 2 MG, dexAMETHasone 4 MG PO SCH ×2 (09:19)
[2021-05-22] MEDS: Oxybutynin 5 MG Tab PO SCH (09:19)
[2021-05-22] MEDS: Gabapentin 300 MG Cap PO SCH ×3 (09:19→20:01)
[2021-05-22] MEDS: Pantoprazole 40 MG Tab.CR PO SCH ×2 (09:19→20:01)
[2021-05-22] MEDS: REMDESIVIR 100 MG in Sodium Chloride 0.9% 100 ML IV SCH (09:20)
[2021-05-22] MEDS: Dorzolamide/Timolol 2%-0.5% Ophth Soln 10 ML Bottle EYEBOTH SCH ×2 (09:22→20:04)
[2021-05-22] MEDS: Sodium Chloride 0.9% 10 ML Syringe FLUSH SCH ×2 (09:22→20:02)
[2021-05-22] MEDS: Simvastatin 20 MG Tab PO SCH (20:01)
[2021-05-22] MEDS: Latanoprost 0.005% Ophth Soln 2.5 ML Bottle EYEBOTH SCH (20:04)
[2021-05-23] MEDS: Levothyroxine 100 MCG Tab PO SCH (06:40)
[2021-05-23] MEDS: Enoxaparin 40 MG/0.4 ML Syringe SUBCUT SCH (09:21)
[2021-05-23] MEDS: Dorzolamide/Timolol 2%-0.5% Ophth Soln 10 ML Bottle EYEBOTH SCH (09:21)
[2021-05-23] MEDS: dexAMETHasone 2 MG, dexAMETHasone 4 MG PO SCH ×2 (09:22)
[2021-05-23] MEDS: Oxybutynin 5 MG Tab PO SCH (09:22)
[2021-05-23] MEDS: Topiramate 50 MG Tab PO SCH (09:22)
[2021-05-23] MEDS: DULoxetine 30 MG Cap PO SCH (09:22)
[2021-05-23] MEDS: Pantoprazole 40 MG Tab.CR PO SCH (09:22)
[2021-05-23] MEDS: Gabapentin 300 MG Cap PO SCH ×2 (09:23→12:40)
[2021-05-23] MEDS: REMDESIVIR 100 MG in Sodium Chloride 0.9% 100 ML IV SCH (09:26)
[2021-05-23] MEDS: Sodium Chloride 0.9% 10 ML Syringe FLUSH SCH (09:26)
[2021-05-23 14:44] VITALS: BP 117/61; PULSE 67
--- NOTE | 2021-05-24 15:42 | DISCH ---
Discharge summary from the acute care floor at [facility]. ADMITTING DIAGNOSES: 1. Sepsis secondary to coronavirus disease 2019 as evidenced by elevated temperature, low blood pressure, elevated respiratory rate. 2. Acute respiratory failure with hypoxia secondary to coronavirus disease 2019. 3. Acute renal failure with elevated creatinine. 4. Clinical dehydration. 5. Diabetes type 2, controlled, not on insulin. 6. Major depressive disorder. 7. Left hemiparesis. 8. Dyslipidemia associated with type 2 diabetes. 9. Acquired hypothyroidism. 10.Gastroesophageal reflux disease. DISCHARGE DIAGNOSES: 1. Sepsis secondary to coronavirus disease 2019 as evidenced by elevated temperature, low blood pressure, elevated respiratory rate-resolved. 2. Acute respiratory failure with hypoxia secondary to coronavirus disease 2019-improved. 3. Acute renal failure with elevated creatinine-resolved. 4. Clinical dehydration-resolved. CONSULTATIONS: Physical and Occupational Therapy, Case Management. DIET: Diabetic. ACTIVITY: As tolerated, per PT recommendations. HISTORY OF PRESENT ILLNESS: A 55-year-old female patient who was admitted to the acute care floor at [facility] on 05/19/2021 for acute respiratory failure with hypoxia secondary to COVID-19. The patient remained hemodynamically stable and afebrile. The patient was placed on remdesivir and Decadron which she tolerated well. Laboratory work stayed stable. The patient did not really have any issues. BRIEF HOSPITAL COURSE: The patient remained afebrile and stable. Laboratory work was stable. The patient continued to require oxygen at discharge, therefore she was placed on a home monitoring system and home oxygen and monitored from home. The patient's appetite was good. No issues of urination or bowel movements. REVIEW OF SYSTEMS: Constitutional: Negative. Skin: Negative. Respiratory: Intermittent shortness of breath with activity, otherwise no issues. Cardiovascular: Negative. Abdomen: Negative. Neurologic: Negative. DISCHARGE PHYSICAL EXAMINATION: Vital Signs: Temperature 97.8, pulse 66, blood pressure 126/66, respiratory rate 18, oxygen saturation 91% on 4 L. Skin: Intact, warm, and dry. Respiratory: Lungs are decreased, but clear throughout. Cardiovascular: Regular rate and rhythm, no murmur. Abdomen: Soft, nontender. Bowel sounds are hypoactive x4. Extremities: No edema. Neurologic: The patient is alert. No new focal neurological deficits. DISCHARGE LABORATORY WORK: 1. CBC: White blood cell count 7.1, hemoglobin 14.1, hematocrit 42.8, platelets 282,000. 2. Sodium 144, potassium 4.0, chloride 108, CO2 of 24, anion gap 16, BUN 24, creatinine 1.2, GFR 47, calcium 8.0, AST 39, ALT 33, alkaline phosphatase 86. DISCHARGE MEDICATIONS: 1. Acetaminophen 650 mg p.o. every 6 hours as needed. 2. Calcium carbonate/vitamin D 1 tablet p.o. daily. 3. Vitamin B12 5000 mcg p.o. daily. 4. Cosopt 2%, 1 drop to both eyes twice daily. 5. Cymbalta 30 mg p.o. twice daily. 6. Gabapentin 600 mg p.o. 3 times daily. 7. Latanoprost 1 drop to both eyes at bedtime. 8. Synthroid 100 mcg 1 tablet p.o. daily. 9. Imodium 2 mg p.o. 4 times daily as needed. 10.Oxybutynin 5 mg 1 tablet p.o. daily. 11.Protonix 40 mg 1 tablet p.o. twice daily. 12.Sennosides 8.6 mg 1 tablet p.o. daily at bedtime as needed. 13.Simvastatin 20 mg 1 tablet p.o. daily at bedtime. 14.Topiramate 75 mg 1 tablet p.o. twice daily. 15.Decadron 6 mg 1 tablet p.o. daily for 7 days, then stop. ASSESSMENT: 1. Sepsis secondary to coronavirus disease 2019 as evidenced by elevated temperature, low blood pressure, elevated respiratory rate. 2. Acute respiratory failure with hypoxia secondary to coronavirus disease 2019. 3. Acute renal failure with elevated creatinine. 4. Clinical dehydration. 5. Diabetes type 2, controlled on insulin. 6. Major depressive disorder. 7. Left hemiparesis. 8. Dyslipidemia associated with type 2 diabetes. 9. Acquired hypothyroidism. 10.Gastroesophageal reflux disease. PLAN: The patient will be discharged home today on home oxygen. The patient has been enrolled in the [facility] remote patient monitoring. The patient is all set up for this. [facility] consulted for oxygen needs and concentrator. Continue on the Decadron for the next 7 days, otherwise no changes with other medications. The patient will need to follow up in clinic in 1 week for post hospital followup. The patient was discharged in hemodynamically stable condition. The patient left via private vehicle. The patient will also be seen virtually every 1 to 2 days while she is on the home monitoring. This patient was seen and examined by me as an [facility] provider. TB: 05/24/2021 08:46:34 MODL: 05/24/2021 15:34:09 /[id number]
== END 2021-05-23 16:32 | DRG 871 ==
LOC: VM.ED 01:24 → VM.MS 03:23 → OBSVTOIN 03:23
PROVIDERS: ADMIT Nurse Practitioner Family; ATTEND Nurse Practitioner Family
PROC: 3E0333Z Introduction of Anti-inflammatory into Peripheral Vein, Percutaneous Approach (ICD-10-PCS; principal; 2021-05-19)
PROC: 3E0DX3Z Introduction of Anti-inflammatory into Mouth and Pharynx, External Approach (ICD-10-PCS; principal; 2021-05-19)
PROC: XW033E5 Introduction of Remdesivir Anti-infective into Peripheral Vein, Percutaneous Approach, New Technology Group 5 (ICD-10-PCS; principal; 2021-05-19)
PROC: 8E0ZXY6 Isolation (ICD-10-PCS; principal; 2021-05-19)
DX: A41.89 Other specified sepsis (principal); R53.1 Weakness; U07.1 COVID-19; H40.9 Unspecified glaucoma; J96.01 Acute respiratory failure with hypoxia; N17.9 Acute kidney failure, unspecified; G81.94 Hemiplegia, unspecified affecting left nondominant side; E86.0 Dehydration; F32.9 Major depressive disorder, single episode, unspecified; Z88.0 Allergy status to penicillin; Z88.7 Allergy status to serum and vaccine; Z79.890 Hormone replacement therapy; Z79.899 Other long term (current) drug therapy; E78.5 Hyperlipidemia, unspecified; E11.9 Type 2 diabetes mellitus without complications; E03.9 Hypothyroidism, unspecified; K21.9 Gastro-esophageal reflux disease without esophagitis; G43.909 Migraine, unspecified, not intractable, without status migrainosus; H90.5 Unspecified sensorineural hearing loss; G62.9 Polyneuropathy, unspecified; M48.07 Spinal stenosis, lumbosacral region; K22.70 Barrett's esophagus without dysplasia; Z90.710 Acquired absence of both cervix and uterus; Z98.49 Cataract extraction status, unspecified eye; Z98.890 Other specified postprocedural states; G89.29 Other chronic pain; M54.9 Dorsalgia, unspecified; E66.9 Obesity, unspecified; Z68.35 Body mass index [BMI] 35.0-35.9, adult
CPT/HCPCS: 36415; 71045; 80048; 83605; 85025; 87040 ×2; 99285; J7030; 80053; 81001; 82550; 82728; 83615; 83735; 84100; 86140; 94760; 97162-GP; 97165-GO; 99284; A9270-GY; J1650; J2405; J7050; J8540

== ENCOUNTER 2021-05-24 08:17 | Emergency (ER) | payer MEDICARE, MEDICAID ==
[2021-05-24 08:41] VITALS: BP 118/63; PULSE 75
--- NOTE | 2021-05-24 09:25 | EDM.PDOC ---
ED HPI GENERAL MEDICAL PROBLEM - General Chief Complaint: Respiratory Problem Time Seen by Provider: 05/24/21 08:52 Source of Information: Reports: Patient, EMS - History of Present Illness INITIAL COMMENTS - FREE TEXT/NARRATIVE: Liz is a 55 y/o female who is brought to the ER by EMS after her oxygen sats at home were in the 70-80s. She has been dx with COVID-19 and was hospitalized. She was sent home yesterday on home oxygen. She remains on steroids. This AM when she got up she checked her O2 sat and it was low, she told the Home Monitoring nurse that her oxygen machine was at 5 liters and she was still only having maegan of 82%, so that is why the RN told her to call 911 an come to the ER. On arrival to her home, EMS reported that her sats were in the mid-90s. She arrive so the ER and is placed on 3 liters of oxygen and her sats are stable in the 90s. She has not other concerns. - Related Data Allergies Allergy/AdvReac Type Severity Reaction Status Date / Time Influenza Virus Vaccines Allergy Paralysis Verified 05/24/21 08:50 Penicillins AdvReac Vomiting Verified 05/24/21 08:50 Home Meds: Home Meds Dorzolamide HCl/Timolol Maleat [Cosopt Eye Drops] 1 drop EYEBOTH BID 06/30/15 [History] Gabapentin [Neurontin] 600 mg PO TID 06/30/15 [History] Latanoprost [Xalatan 0.005% Ophth Soln] 1 drop EYEBOTH BEDTIME 06/15/16 [History] Acetaminophen [Tylenol] 650 mg PO Q6HR PRN MDD 4000 mg 03/26/17 [History] Loperamide HCl [Imodium A-D] 2 mg PO QID PRN 03/26/17 [History] Sennosides [Senokot] 8.6 mg PO BEDTIME PRN 03/26/17 [History] Calcium Carbonate/Vitamin D3 [Calcium 600 mg-D3 10 Mcg Sfgl] 1 each PO DAILY 05/19/21 [History] Cyanocobalamin (Vitamin B-12) [B-12] 5,000 mcg SL DAILY 05/19/21 [History] DULoxetine [Cymbalta] 30 mg PO BID 05/19/21 [History] Levothyroxine [Synthroid] 100 mcg PO ACBREAKFAST 05/19/21 [History] Oxybutynin 5 mg PO DAILY 05/19/21 [History] Pantoprazole Sodium [Protonix] 40 mg PO BID 05/19/21 [History] Simvastatin [Zocor] 20 mg PO BEDTIME 05/19/21 [History] Topiramate 75 mg PO BID 05/19/21 [History] Past Medical History HEENT History: Reports: Cataract, Glaucoma Gastrointestinal History: Reports: GERD Musculoskeletal History: Reports: Back Pain, Chronic Neurological History: Reports: Other (See Below) Other Neuro History: Mom reports [facility] told them pt has "headache less" migraines. Has had brain biopsy at [facility] Endocrine/Metabolic History: Reports: Hypothyroidism, Obesity/BMI 30+ Dermatologic History: Reports: None - Infectious Disease History Infectious Disease History: Reports: Novel Coronavirus, Other (See Below) Other Infectious Disease History: Covid-19 - Past Surgical History HEENT Surgical History: Reports: Cataract Surgery Cardiovascular Surgical History: Reports: None GI Surgical History: Reports: None Female Surgical History: Reports: Hysterectomy Social & Family History - Family History Family Medical History: No Pertinent Family History - Tobacco Use Tobacco Use Status *Q: Unknown Ever Used Tobacco - Caffeine Use Caffeine Use: Reports: None ED ROS GENERAL - Review of Systems Review Of Systems: See Below Constitutional: Reports: No Symptoms HEENT: Reports: No Symptoms Respiratory: Reports: Other Cardiovascular: Reports: No Symptoms (Hypoxemia) Endocrine: Reports: No Symptoms GI/Abdominal: Reports: No Symptoms : Reports: No Symptoms Musculoskeletal: Reports: No Symptoms Skin: Reports: No Symptoms Neurological: Reports: No Symptoms Psychiatric: Reports: No Symptoms Hematologic/Lymphatic: Reports: No Symptoms Immunologic: Reports: No Symptoms ED EXAM, GENERAL - Physical Exam Exam: See Below Exam Limited By: Other (Cognitive Impairment/Learning Disability) General Appearance: Alert, WD/WN, No Apparent Distress (Adult female, appears older than stated age, resting quietly on ER cart.) Ears: Other (Bilateral hearing aids present) Nose: Normal Inspection, Normal Mucosa Throat/Mouth: Normal Inspection, Normal Lips, Normal Voice Head: Atraumatic, Normocephalic Neck: Supple Respiratory/Chest: No Respiratory Distress, Lungs Clear, Other (Currently on 3 liters/oxygen per nc and able to carry on a conversation without difficulty) Cardiovascular: Normal Peripheral Pulses, Regular Rate, Rhythm, No Murmur GI/Abdominal: Normal Bowel Sounds, Soft, Non-Tender (Female) Exam: Deferred Rectal (Female) Exam: Deferred Back Exam: Normal Inspection, Full Range of Motion Extremities: Normal Inspection, Normal Range of Motion, No Pedal Edema, Normal Capillary Refill Neurological: Alert, Oriented, CN II-XII Intact, Normal Gait Psychiatric: Normal Affect Skin Exam: Warm, Dry, Intact, Normal Color Lymphatic: No Adenopathy Course - Vital Signs Text/Narrative:: [id number] The patient was seen by the [employer]. She was on 3 liters of oxygen and was resting comfortably. Able to carry on a conversation. Case discussed with her PCP who agrees no further interventions needed. Support given and reviewed oxygen use with the patient. Written instructions given and she was sent back home with her same hospital discharge instructions from yesterday. Last Recorded V/S: Last Vital Signs Temp 36.6 C 05/24/21 08:20 Pulse 75 05/24/21 08:20 Resp 18 05/24/21 08:20 BP 118/63 05/24/21 08:20 Pulse Ox 96 05/24/21 08:20 Departure - Departure Time of Disposition: 09:18 Disposition: Home, Self-Care 01 Condition: Good Clinical Impression: COVID-19, Oxygen dependent - Discharge Information Instructions: Symptoms of COVID-19 - CDC (09/19/2020) Referrals: Moses Liu, [employer] [Nurse Practitioner] - Additional Instructions: -Resume all meds as prescribed by PCP -Continue home oxygen -Continue daily follow ups with [facility] Monitoring nurse -Rest -Stay hydrated -Follow up with PCP for any concerns -Return to the ER as needed Sepsis Event Note (ED) - Focused Exam Vital Signs: Vital Signs Temp Pulse Resp BP Pulse Ox 05/24/21 08:20 36.6 C 75 18 118/63 96 - Problem List & Annotations (1) COVID-19 SNOMED Code(s): 627444674 Code(s): U07.1 - COVID-19 Status: Acute Annotation/Comment:: -Continues on steroids. (2) Oxygen dependent SNOMED Code(s): 760706386402 Code(s): Z99.81 - DEPENDENCE ON SUPPLEMENTAL OXYGEN Status: Acute Annotation/Comment:: Home oxygen to continue as needed with [facility]. (3) Learning disability SNOMED Code(s): 7868677 Code(s): F81.9 - DEVELOPMENTAL DISORDER OF SCHOLASTIC SKILLS, UNSPECIFIED Status: Chronic Annotation/Comment:: Reinforced home oxygen instructions. Suspect some issues with the oxygen managment and home monitoring equipment, but client stable here in the ER. - Assessment/Plan Plan: See above
== END 2021-05-24 09:48 | disposition home or self-care (01) ==
LOC: VM.ED 08:17
DX: U07.1 COVID-19 (principal); E03.9 Hypothyroidism, unspecified; K21.9 Gastro-esophageal reflux disease without esophagitis; Z79.899 Other long term (current) drug therapy; Z88.0 Allergy status to penicillin; Z88.7 Allergy status to serum and vaccine; Z99.81 Dependence on supplemental oxygen
CPT/HCPCS: 99284

== ENCOUNTER 2023-05-23 15:11 | Emergency (ER) | payer MEDICARE, MEDICAID ==
[2023-05-23 15:35] VITALS: PULSE 80
[2023-05-23] MEDS ORDERED: Sodium Chloride 0.9% 10 ML Syringe FLUSH PRN (15:37)
[2023-05-23 16:04] LABS: BASOPHILS PERCENT AUTO 0.3 % (0.2-1.2); EOSINOPHILS ABSOLUTE AUTO 0.2 x10^3/uL (0.0-0.5); EOSINOPHILS PERCENT AUTO 2.6 % (0.0-4.0); HEMATOCRIT 49.1 % (33.0-47.0); HEMOGLOBIN 16.2 g/dL (12.0-16.0); IMMATURE GRAN ABSOLUTE AUTO 0.01 x10^3/uL (0.00-0.07); LYMPHOCYTES ABSOLUTE AUTO 1.9 x10^3/uL (1.0-4.8); LYMPHOCYTES PERCENT AUTO 26.2 % (25.0-50.0); MEAN CORPUSCULAR HEMOGLOBIN 28.6 pg (26.0-32.0); MEAN CORPUSCULAR VOLUME 86.6 fL (78.0-93.0); MONOCYTES ABSOLUTE AUTO 0.9 x10^3/uL (0.0-0.8); MONOCYTES PERCENT AUTO 13.3 % (2.0-11.0); NEUTROPHILS ABSOLUTE AUTO 4.1 x10^3/uL (1.8-7.7); NEUTROPHILS PERCENT AUTO 57.5 % (50.0-80.0); PLATELET COUNT,PLT 195 x10^3/uL (130-400); RED BLOOD CELL COUNT 5.67 x10^6/uL (4.00-5.50); WHITE BLOOD CELL COUNT,WBC 7.1 x10^3/uL (4.0-10.0)
[2023-05-23 16:13] LABS: PROTHROMBIN TIME 10.4 SEC (9.5-12.2); PTT,PARTIAL THROMBOPLSTIN TIME 29.6 SEC (23.6-33.6)
[2023-05-23 16:18] LABS: A/G RATIO 0.84; ALANINE AMINOTRANSFERASE,ALT 25 U/L (14-59); ALBUMIN 3.6 g/dL (3.4-5.0); ALKALINE PHOSPHATASE 97 U/L (46-116); ASPARTATE AMNIOTRANSFERASE,AST 25 U/L (15-37); BILIRUBIN TOTAL 0.3 mg/dL (0.2-1.0); BLOOD UREA NITROGEN,BUN 22 mg/dL (7-18); CARBON DIOXIDE,CO2 28 mmol/L (21-32); CHLORIDE,CL 107 mmol/L (98-107); CREATININE 1.3 mg/dL (0.55-1.02); EST CRCL DRUG DOSING (CG) 36.03 mL/min; GLUCOSE RANDOM 90 mg/dL (70-99); MAGNESIUM 2.1 mg/dL (1.8-2.4); POTASSIUM,K 3.8 mmol/L (3.5-5.1); PROTEIN TOTAL,TP 7.9 g/dL (6.4-8.2); SODIUM,NA 145 mmol/L (136-145)
[2023-05-23 16:23] LABS: ANION GAP 13.8 mmol/L (5-15); ESTIMATED GFR 48 mL/min (>=60); ETHANOL BLOOD MEDICAL < 3 mg/dL (0-3)
[2023-05-23 16:24] LABS: CALCIUM 8.4 mg/dL (8.5-10.1)
[2023-05-23 17:55] VITALS: BP 133/61
== END 2023-05-23 17:22 | disposition home or self-care (01) ==
LOC: VM.ED 15:11
DX: R20.2 Paresthesia of skin (principal); K21.9 Gastro-esophageal reflux disease without esophagitis; E03.9 Hypothyroidism, unspecified; E66.9 Obesity, unspecified; Z68.34 Body mass index [BMI] 34.0-34.9, adult; Z79.899 Other long term (current) drug therapy; Z88.0 Allergy status to penicillin; Z88.7 Allergy status to serum and vaccine
CPT/HCPCS: 70450; 80053; 80307; 83735; 84443; 84484; 85025; 85610; 85730; 86140; 93005; 99284

== ENCOUNTER 2024-07-22 08:34 | Inpatient (IN) | payer MEDICARE, MEDICAID ==
[2024-07-22 08:55] LABS: BASOPHILS PERCENT AUTO 0.2 % (0.2-1.2); EOSINOPHILS ABSOLUTE AUTO 0.2 x10^3/uL (0.0-0.5); EOSINOPHILS PERCENT AUTO 1.2 % (0.0-4.0); HEMATOCRIT 48.8 % (33.0-47.0); HEMOGLOBIN 16.1 g/dL (12.0-16.0); IMMATURE GRAN ABSOLUTE AUTO 0.03 x10^3/uL (0.00-0.07); LYMPHOCYTES ABSOLUTE AUTO 0.9 x10^3/uL (1.0-4.8); LYMPHOCYTES PERCENT AUTO 5.6 % (25.0-50.0); MEAN CORPUSCULAR HEMOGLOBIN 29.3 pg (26.0-32.0); MEAN CORPUSCULAR VOLUME 88.9 fL (78.0-93.0); MONOCYTES ABSOLUTE AUTO 0.9 x10^3/uL (0.0-0.8); MONOCYTES PERCENT AUTO 6.1 % (2.0-11.0); NEUTROPHILS ABSOLUTE AUTO 13.3 x10^3/uL (1.8-7.7); NEUTROPHILS PERCENT AUTO 86.7 % (50.0-80.0); PLATELET COUNT,PLT 196 x10^3/uL (130-400); RED BLOOD CELL COUNT 5.49 x10^6/uL (4.00-5.50); WHITE BLOOD CELL COUNT,WBC 15.3 x10^3/uL (4.0-10.0)
[2024-07-22 09:15] LABS: A/G RATIO 0.84; ALANINE AMINOTRANSFERASE,ALT 44 U/L (14-59); ALBUMIN 3.8 g/dL (3.4-5.0); ALKALINE PHOSPHATASE 125 U/L (46-116); ASPARTATE AMNIOTRANSFERASE,AST 29 U/L (15-37); BILIRUBIN TOTAL 0.5 mg/dL (0.2-1.0); BLOOD UREA NITROGEN,BUN 31 mg/dL (7-18); CALCIUM 9.1 mg/dL (8.5-10.1); CARBON DIOXIDE,CO2 28 mmol/L (21-32); CHLORIDE,CL 106 mmol/L (98-107); CREATININE 1.7 mg/dL (0.55-1.02); GLUCOSE RANDOM 180 mg/dL (70-99); PROTEIN TOTAL,TP 8.3 g/dL (6.4-8.2); SODIUM,NA 142 mmol/L (136-145)
[2024-07-22 09:18] LABS: ESTIMATED GFR 34 mL/min (>=60)
[2024-07-22] MEDS: Acetaminophen 325 MG Tab PO ONE (09:19)
[2024-07-22] MEDS: cloNIDine 0.1 MG Tab PO ONE (09:19)
[2024-07-22 09:44] LABS: CORONAVIRUS COVID-19 NAA NEGATIVE (NEGATIVE); INFLUENZA A NAA NEGATIVE (NEGATIVE); INFLUENZA B NAA NEGATIVE (NEGATIVE); RESPIRATORY SYNCYTIAL VIR NAA NEGATIVE (NEGATIVE)
[2024-07-22] MEDS: Sodium Chloride 0.9% 1,000 ML IV ONE (10:17)
[2024-07-22] MEDS: cefTRIAXone 2 GM Vial IVPUSH ONE (10:18)
[2024-07-22] MEDS: Sodium Chloride 0.9% 1,000 ML IV SCH (13:12)
[2024-07-22] MEDS: Albuterol/Ipratropium 3.0-0.5 MG/3 ML Neb Soln NEB SCH (13:18)
[2024-07-22] MEDS: Azithromycin 500 MG in Sodium Chloride 0.9% 250 ML IV SCH (13:26)
[2024-07-22] MEDS: Pantoprazole 40 MG Tab.CR PO SCH (17:37)
[2024-07-22] MEDS: Gabapentin 300 MG Cap PO SCH (19:44)
[2024-07-22] MEDS: Acetaminophen 325 MG Tab PO PRN (21:41)
[2024-07-22] MEDS: DULoxetine 60 MG Cap PO SCH (21:42)
[2024-07-22] MEDS: sulfaSALAzine 500 MG Tab.EC PO SCH (21:42)
[2024-07-22] MEDS: Rosuvastatin 20 MG Tab PO SCH (21:42)
[2024-07-22] MEDS: Mirtazapine 15 MG Tab PO SCH (21:43)
[2024-07-22] MEDS: Dorzolamide/Timolol 2%-0.5% Ophth Soln 10 ML Bottle EYEBOTH SCH (21:46)
[2024-07-22] MEDS: Latanoprost 0.005% Ophth Soln 2.5 ML Bottle EYEBOTH SCH (21:47)
[2024-07-23] MEDS: Levothyroxine 125 MCG Tab PO SCH (06:32)
[2024-07-23 08:06] LABS: BASOPHILS PERCENT AUTO 0.2 % (0.2-1.2); EOSINOPHILS ABSOLUTE AUTO 0.3 x10^3/uL (0.0-0.5); EOSINOPHILS PERCENT AUTO 2.7 % (0.0-4.0); HEMATOCRIT 40.5 % (33.0-47.0); HEMOGLOBIN 13.2 g/dL (12.0-16.0); IMMATURE GRAN ABSOLUTE AUTO 0.02 x10^3/uL (0.00-0.07); LYMPHOCYTES ABSOLUTE AUTO 2.1 x10^3/uL (1.0-4.8); LYMPHOCYTES PERCENT AUTO 22.8 % (25.0-50.0); MEAN CORPUSCULAR HEMOGLOBIN 29.9 pg (26.0-32.0); MEAN CORPUSCULAR HGB CONC 32.6 g/dL (32.0-36.0); MEAN CORPUSCULAR VOLUME 91.8 fL (78.0-93.0); MONOCYTES ABSOLUTE AUTO 0.8 x10^3/uL (0.0-0.8); MONOCYTES PERCENT AUTO 8.6 % (2.0-11.0); NEUTROPHILS ABSOLUTE AUTO 6.1 x10^3/uL (1.8-7.7); NEUTROPHILS PERCENT AUTO 65.5 % (50.0-80.0); PLATELET COUNT,PLT 161 x10^3/uL (130-400); RED BLOOD CELL COUNT 4.41 x10^6/uL (4.00-5.50); WHITE BLOOD CELL COUNT,WBC 9.3 x10^3/uL (4.0-10.0)
[2024-07-23 08:29] LABS: A/G RATIO 0.68; ALBUMIN 2.6 g/dL (3.4-5.0); ANION GAP 13.7 mmol/L (5-15); BILIRUBIN TOTAL 0.3 mg/dL (0.2-1.0); CREATININE 1.4 mg/dL (0.55-1.02); EST CRCL DRUG DOSING (CG) 32.65 mL/min; MAGNESIUM 1.9 mg/dL (1.8-2.4); POTASSIUM,K 3.7 mmol/L (3.5-5.1); PROTEIN TOTAL,TP 6.4 g/dL (6.4-8.2)
[2024-07-23] MEDS: Mirabegron 25 MG Tab Extended Release PO SCH (08:53)
[2024-07-23] MEDS: Enoxaparin 30 MG/0.3 ML Syringe SUBCUT SCH (08:53)
[2024-07-23] MEDS: Topiramate 25 MG Tab PO SCH (08:53)
[2024-07-23] MEDS: cefTRIAXone 1 GM Vial IVPUSH SCH (08:54)
[2024-07-23] MEDS: buPROPion 150 MG Tab.ER PO SCH (08:59)
[2024-07-23] MEDS: Lactated Ringers 1,000 ML IV SCH (21:08)
[2024-07-24 07:17] LABS: BASOPHILS PERCENT AUTO 0.4 % (0.2-1.2); EOSINOPHILS ABSOLUTE AUTO 0.5 x10^3/uL (0.0-0.5); EOSINOPHILS PERCENT AUTO 5.7 % (0.0-4.0); HEMATOCRIT 41.3 % (33.0-47.0); HEMOGLOBIN 13.4 g/dL (12.0-16.0); IMMATURE GRAN ABSOLUTE AUTO 0.04 x10^3/uL (0.00-0.07); LYMPHOCYTES ABSOLUTE AUTO 1.7 x10^3/uL (1.0-4.8); LYMPHOCYTES PERCENT AUTO 20.5 % (25.0-50.0); MEAN CORPUSCULAR HEMOGLOBIN 29.6 pg (26.0-32.0); MEAN CORPUSCULAR HGB CONC 32.4 g/dL (32.0-36.0); MEAN CORPUSCULAR VOLUME 91.2 fL (78.0-93.0); MONOCYTES ABSOLUTE AUTO 0.7 x10^3/uL (0.0-0.8); MONOCYTES PERCENT AUTO 8.9 % (2.0-11.0); NEUTROPHILS ABSOLUTE AUTO 5.3 x10^3/uL (1.8-7.7); PLATELET COUNT,PLT 177 x10^3/uL (130-400); RED BLOOD CELL COUNT 4.53 x10^6/uL (4.00-5.50); WHITE BLOOD CELL COUNT,WBC 8.2 x10^3/uL (4.0-10.0)
[2024-07-24 07:28] LABS: A/G RATIO 0.72; ALBUMIN 2.8 g/dL (3.4-5.0); BILIRUBIN TOTAL 0.2 mg/dL (0.2-1.0); CALCIUM 8.1 mg/dL (8.5-10.1); CREATININE 1.4 mg/dL (0.55-1.02); EST CRCL DRUG DOSING (CG) 32.65 mL/min; PROTEIN TOTAL,TP 6.7 g/dL (6.4-8.2)
[2024-07-25] MEDS: Albuterol/Ipratropium 3.0-0.5 MG/3 ML Neb Soln NEB PRN (00:09)
[2024-07-25] MEDS: Azithromycin 250 MG Tab PO SCH (08:25)
[2024-07-25 08:26] LABS: BASOPHILS PERCENT AUTO 0.4 % (0.2-1.2); EOSINOPHILS ABSOLUTE AUTO 0.5 x10^3/uL (0.0-0.5); HEMATOCRIT 41.8 % (33.0-47.0); HEMOGLOBIN 13.8 g/dL (12.0-16.0); IMMATURE GRAN ABSOLUTE AUTO 0.03 x10^3/uL (0.00-0.07); LYMPHOCYTES ABSOLUTE AUTO 1.9 x10^3/uL (1.0-4.8); LYMPHOCYTES PERCENT AUTO 18.6 % (25.0-50.0); MEAN CORPUSCULAR HEMOGLOBIN 29.6 pg (26.0-32.0); MEAN CORPUSCULAR VOLUME 89.5 fL (78.0-93.0); MONOCYTES PERCENT AUTO 9.6 % (2.0-11.0); NEUTROPHILS ABSOLUTE AUTO 6.7 x10^3/uL (1.8-7.7); NEUTROPHILS PERCENT AUTO 66.1 % (50.0-80.0); PLATELET COUNT,PLT 196 x10^3/uL (130-400); RED BLOOD CELL COUNT 4.67 x10^6/uL (4.00-5.50); WHITE BLOOD CELL COUNT,WBC 10.1 x10^3/uL (4.0-10.0)
[2024-07-25 08:45] LABS: CALCIUM 8.6 mg/dL (8.5-10.1); CREATININE 1.5 mg/dL (0.55-1.02); EST CRCL DRUG DOSING (CG) 30.47 mL/min; POTASSIUM,K 3.9 mmol/L (3.5-5.1)
[2024-07-25 08:52] LABS: ANION GAP 13.9 mmol/L (5-15)
[2024-07-25 12:12] VITALS: BP 145/88; PULSE 88
== END 2024-07-25 12:15 | disposition swing bed (61) | DRG 871 ==
LOC: VM.ED 08:34 → VM.MS 12:07
PROVIDERS: ADMIT Nurse Practitioner Family; ATTEND Nurse Practitioner Family
DX: A41.9 Sepsis, unspecified organism (principal); J18.9 Pneumonia, unspecified organism; G81.94 Hemiplegia, unspecified affecting left nondominant side; N17.9 Acute kidney failure, unspecified; E11.51 Type 2 diabetes mellitus with diabetic peripheral angiopathy without gangrene; F32.9 Major depressive disorder, single episode, unspecified; E78.5 Hyperlipidemia, unspecified; K21.00 Gastro-esophageal reflux disease with esophagitis, without bleeding; K21.9 Gastro-esophageal reflux disease without esophagitis; E11.42 Type 2 diabetes mellitus with diabetic polyneuropathy; N32.81 Overactive bladder; H91.90 Unspecified hearing loss, unspecified ear; G43.909 Migraine, unspecified, not intractable, without status migrainosus; I10 Essential (primary) hypertension; E86.0 Dehydration; H26.9 Unspecified cataract; H40.9 Unspecified glaucoma; E66.9 Obesity, unspecified; F15.90 Other stimulant use, unspecified, uncomplicated; E03.9 Hypothyroidism, unspecified; Z90.710 Acquired absence of both cervix and uterus; Z79.899 Other long term (current) drug therapy; Z79.890 Hormone replacement therapy; Z79.1 Long term (current) use of non-steroidal anti-inflammatories (NSAID); Z88.0 Allergy status to penicillin; Z88.7 Allergy status to serum and vaccine; Z68.38 Body mass index [BMI] 38.0-38.9, adult; Z86.16 Personal history of COVID-19; Z79.02 Long term (current) use of antithrombotics/antiplatelets; Z98.49 Cataract extraction status, unspecified eye
CPT/HCPCS: 0241U; 36415; 71045; 80048; 80053; 82947; 83605; 83735; 85025; 86140; 87040; 94640; 96361; 96374; 97110-GP; 97116-GP; 97162-GP; 97165-GO; 97535-GO; 99223; 99233; 99238; 99284; 99285-25; A9270-GY; J0456; J0696; J1650; J7030; J7050; J7120; J7620-GY

== ENCOUNTER 2024-07-25 11:13 | Inpatient (IN) | payer MEDICARE, MEDICAID ==
[2024-07-25] MEDS ORDERED: Acetaminophen 325 MG Tab PO PRN (11:47)
[2024-07-25] MEDS: cefTRIAXone 1 GM Vial IVPUSH SCH (13:47)
[2024-07-25] MEDS: Gabapentin 300 MG Cap PO SCH (13:50)
[2024-07-25] MEDS: Dorzolamide/Timolol 2%-0.5% Ophth Soln 10 ML Bottle EYEBOTH SCH (21:25)
[2024-07-25] MEDS: Pantoprazole 40 MG Tab.CR PO SCH (21:27)
[2024-07-25] MEDS: Latanoprost 0.005% Ophth Soln 2.5 ML Bottle EYEBOTH SCH (21:27)
[2024-07-25] MEDS: DULoxetine 30 MG Cap PO SCH (21:27)
[2024-07-25] MEDS: Mirtazapine 15 MG Tab PO SCH (21:27)
[2024-07-26] MEDS: Levothyroxine 125 MCG Tab PO SCH (06:12)
[2024-07-26] MEDS: Cyanocobalamin (Vitamin B12) 250 MCG Tab PO SCH (08:10)
[2024-07-26] MEDS: Topiramate 50 MG Tab PO SCH (08:11)
[2024-07-26] MEDS: Rosuvastatin 20 MG Tab PO SCH (08:12)
[2024-07-26] MEDS: Azithromycin 250 MG Tab PO SCH (08:12)
[2024-07-26] MEDS: Calcium Carbonate/Vitamin D3 1250 MG-5 MCG Tab PO SCH (08:13)
[2024-07-26] MEDS: Mirabegron 25 MG Tab Extended Release PO SCH (08:13)
[2024-07-26] MEDS: buPROPion 150 MG Tab.ER PO SCH (08:13)
[2024-07-26] MEDS: sulfaSALAzine 500 MG Tab.EC PO SCH (11:01)
[2024-07-27] MEDS: ALPHA LIPOIC ACID 600 MG PO SCH (13:17)
[2024-07-31 06:47] VITALS: PULSE 86
[2024-07-31 09:37] VITALS: BP 146/77
== END 2024-07-31 09:50 | DRG 947 ==
LOC: VM.MS 12:15
PROVIDERS: ADMIT Nurse Practitioner Family; ATTEND Nurse Practitioner Family
DX: R53.1 Weakness (principal); J18.9 Pneumonia, unspecified organism; F33.9 Major depressive disorder, recurrent, unspecified; G81.94 Hemiplegia, unspecified affecting left nondominant side; P35.0 Congenital rubella syndrome; E11.51 Type 2 diabetes mellitus with diabetic peripheral angiopathy without gangrene; E03.9 Hypothyroidism, unspecified; E11.42 Type 2 diabetes mellitus with diabetic polyneuropathy; E11.69 Type 2 diabetes mellitus with other specified complication; E78.5 Hyperlipidemia, unspecified; G43.909 Migraine, unspecified, not intractable, without status migrainosus; H91.90 Unspecified hearing loss, unspecified ear; K21.00 Gastro-esophageal reflux disease with esophagitis, without bleeding; E86.0 Dehydration; Z88.0 Allergy status to penicillin
CPT/HCPCS: 82947; 97110-GP; 97116-GP; 97530-GP; 97535-GO; 99306; 99315; A9270-GY; J0696

== ENCOUNTER 2024-10-19 08:32 | Emergency (ER) | payer MEDICARE, MEDICAID ==
[2024-10-19 09:33] LABS: BASOPHILS PERCENT AUTO 0.2 % (0.2-1.2); EOSINOPHILS ABSOLUTE AUTO 0.4 x10^3/uL (0.0-0.5); HEMOGLOBIN 15.2 g/dL (12.0-16.0); IMMATURE GRAN ABSOLUTE AUTO 0.14 x10^3/uL (0.00-0.07); LYMPHOCYTES ABSOLUTE AUTO 1.8 x10^3/uL (1.0-4.8); MEAN CORPUSCULAR HEMOGLOBIN 29.7 pg (26.0-32.0); MONOCYTES ABSOLUTE AUTO 0.9 x10^3/uL (0.0-0.8); MONOCYTES PERCENT AUTO 9.5 % (2.0-11.0); NEUTROPHILS ABSOLUTE AUTO 5.9 x10^3/uL (1.8-7.7); NEUTROPHILS PERCENT AUTO 64.8 % (50.0-80.0); PLATELET COUNT,PLT 210 x10^3/uL (130-400); RED BLOOD CELL COUNT 5.11 x10^6/uL (4.00-5.50); WHITE BLOOD CELL COUNT,WBC 9.1 x10^3/uL (4.0-10.0)
[2024-10-19 09:51] LABS: HCO3 VENOUS,POC 23 mmol/L (22-29); O2 SATURATION VENOUS,POC 86 %; PCO2 VENOUS,POC 41 mmHg (41-51); PH VENOUS,POC 7.35 pH (7.32-7.43); PO2 VENOUS,POC 54 mmHg
[2024-10-19 09:56] LABS: INR 0.9 (0.9-1.1); PROTHROMBIN TIME 10.1 SEC (9.6-12.0)
[2024-10-19 09:57] LABS: LACTIC ACID 0.9 mmol/L (0.4-2.0)
[2024-10-19 10:06] LABS: A/G RATIO 0.68; BILIRUBIN TOTAL 0.3 mg/dL (0.2-1.0); C-REACTIVE PROTEIN 1.81 mg/dL (<=0.50); CALCIUM 8.3 mg/dL (8.5-10.1); CREATININE 1.4 mg/dL (0.55-1.02); EST CRCL DRUG DOSING (CG) 32.65 mL/min; MAGNESIUM 2.1 mg/dL (1.8-2.4); POTASSIUM,K 4.1 mmol/L (3.5-5.1); PROTEIN TOTAL,TP 7.4 g/dL (6.4-8.2)
[2024-10-19 10:07] LABS: ANION GAP 16.1 mmol/L (5-15)
[2024-10-19] MEDS: Iopamidol 755 Mg/ML 100 ML Bottle IVPUSH ONE (10:55)
[2024-10-19] MEDS: cefTRIAXone 1 GM Vial IVPUSH ONE (11:56)
[2024-10-19 12:37] VITALS: BP 148/74; PULSE 68
== END 2024-10-19 12:25 | disposition home or self-care (01) ==
LOC: VM.ED 08:32
DX: J18.9 Pneumonia, unspecified organism (principal); E03.9 Hypothyroidism, unspecified; K21.9 Gastro-esophageal reflux disease without esophagitis; Z88.7 Allergy status to serum and vaccine; Z88.0 Allergy status to penicillin; Z79.899 Other long term (current) drug therapy; Z79.890 Hormone replacement therapy
CPT/HCPCS: 36415; 71045; 71275; 80053; 82803; 83605; 83735; 83880; 84484; 85025; 85379; 85610; 85730; 86140; 87040; 87428-QW; 96374; 99285-25; J0696; Q9967

== ENCOUNTER 2024-10-23 03:15 | Emergency (ER) | payer MEDICAID, MEDICARE ==
[2024-10-23] MEDS ORDERED: Alum Hydrox/Mag Hydrox/Simeth 30 ML, Lidocaine 2% 15 ML PO ONE (03:41)
[2024-10-23 03:53] LABS: BASOPHILS PERCENT AUTO 0.2 % (0.2-1.2); EOSINOPHILS ABSOLUTE AUTO 0.3 x10^3/uL (0.0-0.5); EOSINOPHILS PERCENT AUTO 2.9 % (0.0-4.0); HEMATOCRIT 44.4 % (33.0-47.0); HEMOGLOBIN 14.5 g/dL (12.0-16.0); IMMATURE GRAN ABSOLUTE AUTO 0.05 x10^3/uL (0.00-0.07); LYMPHOCYTES ABSOLUTE AUTO 1.7 x10^3/uL (1.0-4.8); MEAN CORPUSCULAR HEMOGLOBIN 29.4 pg (26.0-32.0); MEAN CORPUSCULAR HGB CONC 32.7 g/dL (32.0-36.0); MEAN CORPUSCULAR VOLUME 90.1 fL (78.0-93.0); MONOCYTES ABSOLUTE AUTO 0.8 x10^3/uL (0.0-0.8); MONOCYTES PERCENT AUTO 7.8 % (2.0-11.0); NEUTROPHILS ABSOLUTE AUTO 7.2 x10^3/uL (1.8-7.7); NEUTROPHILS PERCENT AUTO 71.6 % (50.0-80.0); PLATELET COUNT,PLT 200 x10^3/uL (130-400); RED BLOOD CELL COUNT 4.93 x10^6/uL (4.00-5.50)
[2024-10-23] MEDS: Alum Hydrox/Mag Hydrox/Simeth 30 ML, Lidocaine 2% 15 ML, Promethazine 12.5 MG PO ONE ×2 (04:00→05:30)
[2024-10-23 04:14] LABS: A/G RATIO 0.74; ALBUMIN 2.9 g/dL (3.4-5.0); ANION GAP 10.7 mmol/L (5-15); BILIRUBIN TOTAL 0.3 mg/dL (0.2-1.0); CALCIUM 7.5 mg/dL (8.5-10.1); CREATININE 1.8 mg/dL (0.55-1.02); EST CRCL DRUG DOSING (CG) 25.39 mL/min; MAGNESIUM 1.9 mg/dL (1.8-2.4); POTASSIUM,K 3.7 mmol/L (3.5-5.1); PROTEIN TOTAL,TP 6.8 g/dL (6.4-8.2)
[2024-10-23] MEDS: Famotidine 20 MG/2 ML SDV IVPUSH ONE (05:31)
[2024-10-23 06:14] VITALS: BP 154/80; PULSE 74
== END 2024-10-23 06:12 | disposition home or self-care (01) ==
LOC: VM.ED 03:15
DX: K21.9 Gastro-esophageal reflux disease without esophagitis (principal); E03.9 Hypothyroidism, unspecified; E66.9 Obesity, unspecified; Z68.41 Body mass index [BMI] 40.0-44.9, adult; Z90.710 Acquired absence of both cervix and uterus; Z88.0 Allergy status to penicillin; Z88.7 Allergy status to serum and vaccine; Z79.890 Hormone replacement therapy; Z79.899 Other long term (current) drug therapy
CPT/HCPCS: 36415; 71045; 80053; 83735; 84484; 85025; 93005; 96374; 99285-25; A9270-GY